=== PATIENT | male | born 1970 | race Caucasian/White ===

== ENCOUNTER 2019-10-02 18:29 | Emergency (ER) | payer BC, SELFPAY ==
[2019-10-02] VITALS (42 sets, daily range): BP systolic 146–203; BP diastolic 79–123; PULSE 82–107; RESP 16–24; O2SAT 90–100
--- NOTE | 2019-10-02 18:36 | ED.GENADUL_ITS ---
Discharge Plan Disposition Patient Disposition: [facility] Condition: Serious Discharge Details Chief Complaint: CVA/TIA Clinical Impression: Intraparenchymal hemorrhage of brain Primary Care Provider: Santiago Blackman ED Provider: Janelle Tamayo Home Meds and New Rx's Prescriptions: No Action acetaminophen 500 mg Tablet 500 mg PO Q6H PRNRF: 0 ibuprofen 600 mg Tablet 600 mg PO Q6H PRNRF: 0 Discharge Data Discharge Date/Time-TO BE ENTERED AT DEPARTURE: 10/02/19 21:40 Medical Decision Making Patient is a pleasant 48-year-old male with past medical history significant for hypertension presenting today with chief complaint of sudden onset of headache and confusion. Patient's is giving history. She reports that approximate 30 minutes prior to arrival, the patient had a sudden onset of severe headache behind the right eye. States that he was suddenly having difficulty with word finding and was unable to describe what he had for things. For instance, she reports that the patient had been eating a sandwich and reported that admitted on the bed when in fact had placed on the table. He was unable to recall his birthday and was unaware of where he was when he first arrived. Patient has had headaches like this historically but without any associated confusion. Patient is not anticoagulated. No history of aneurysm repair where Reviewed imaging and patient has an intraparenchymal bleed that appears to be the temporal and occipital lobes on the left side. No midline shift is noted. Patient's blood pressure is 192/123. We will begin IV nicardipine. Consulted with Dr. Koch with [facility] neurosurgery. She advised that the nicardipine was appropriate and recommended goal systolic blood pressure of less than 140. Also advised giving 1 g of Keppra IV. Awaiting to hear back on bed placement Patient is now oriented x3 but is still having difficulty determining his year. He is able to tell me the day and month at this time. He is able to identify objects that are held in front of him. Patient accepted at [facility] ED [place] ED transfer. Accepting Dr. Randall. Will see if [facility] is flying. [facility] was initially flying, now having mechanical issue. [facility] ground coming. Patient continues to appear clinically well. Difficulty controlling BP. He is maxed at 15mg/hr of nicardipine with BP of 165/112. Plan to give 10mg IV Labetalol. Discussed case with Dr. Blanchard. Just prior to dosing, SBP 148, will hold off on labetalol. BP came back up again,j 10mg of labetalol given IV push. Patient appears improved from when he first came in. He is denying AMIN. Still having difficulty with word finding but this is less pronounced than when he first came in. [facility] ground crew transported patient to [facility] for continued care HPI General Mode of arrival: ambulatory . Date/Time Provider Initiated Documentation: 10/02/19 18:35 . Limitations to Documentation: altered mental status (patient confused) . Information obtained by: patient . History of Present Illness 49 year old M presents to the emergency department with the chief complaint of headache, con fusion, described as severe and similar to prior episodes (has had similar headaches previously), Quality is described as stabbing, and is localized to the face (behind right eye). Patient reports no radiation. Patient started experiencing this minute(s) (30) and it has been constant. Patient notes confusion and headaches; denies fever/chills, nausea/vomiting and weakness. Patient did receive the following treatments prior to arrival, none Related Data Home Medications Medication Instructions Recorded Confirmed acetaminophen 500 mg PO Q6H PRN 10/02/19 10/02/19 ibuprofen 600 mg PO Q6H PRN 10/02/19 10/02/19 Allergies Allergy/AdvReac Type Severity Reaction Status Date / Time No Known Allergies Allergy Unverified 12/17/17 19:34 Review of Systems Constitutional Constitutional: Reports as per HPI, Denies chills, Denies fatigue, Denies fever(s), Denies frequent falls, Reports headache(s), Denies snoring and Denies weakness Eyes Eyes: Reports as per HPI, Denies blurry vision, Denies change in vision and Reports photophobia ENT Ears, Nose, Mouth, and Throat: Denies vertigo, Reports headache(s) and Denies neck pain Cardiovascular Cardiovascular: Reports as per HPI, Denies chest pain, Denies lightheadedness, Denies radiating jaw, neck or arm pain, Denies dyspnea and Denies dyspnea on exertion Respiratory Respiratory: Reports as per HPI, Denies chest congestion, Denies cough, Denies dyspnea, Denies dyspnea on exertion, Denies snoring, Denies stridor and Denies wheezing Gastrointestinal Gastrointestinal: Reports as per HPI, Denies abdominal pain, Denies change in bowel habits, Denies nausea and Denies vomiting Genitourinary Genitourinary: Reports system reviewed and no additional complaints, except as docu (denies change in urinary habits) Musculoskeletal Musculoskeletal: Reports as per HPI, Denies back pain, Denies myalgias, Denies muscle cramps, Denies neck pain and Denies numbness Integumentary/Breasts Skin/Breast: Reports as per HPI and Denies rash Neurologic Neurologic: Reports as per HPI, Denies abnormal movements, Reports abnormal speech, Reports behavioral changes, Reports confusion, Denies vertigo, Denies frequent falls, Reports headache(s), Denies focal weakness, Denies numbness, Denies sensory deficit and Denies weakness Psychiatric Psychiatric: Reports behavioral changes and Reports confusion Endocrine Endocrine: Denies fatigue Allergic/Immunologic Allergic/Immunologic: Denies wheezing [facility] Social History Smoking/Tobacco Use Status: Current every day Tobacco Type: smokeless tobacco Alcohol Intake: never Drug use: Never Substance use type: does not use Do you feel safe in your relationship?: Yes Exam Const General: cooperative, healthy appearing, comfortable, no acute distress, well developed and well groomed Nutritional Appearance: well nourished and overweight Orientation: alert, awake and oriented x3 HENMT Head: normal to inspection, no palpable skull fracture, normocephalic and atraumatic Ears: hearing grossly normal bilaterally, external ears normal and TM's normal bilaterally General nose exam: external nose normal Mouth: oral mucosae normal and moist mucous membranes Throat: posterior oropharynx normal Eyes General: appearance normal, both eyes and all related structures Alignment and Position: alignment normal Periorbital: periorbital findings normal Eyelids: eyelids normal Sclera: sclerae normal Cornea: corneas normal Pupils: PERRL EOM: EOM intact bilaterally Neck Neck: normal visual inspection, full ROM, no lymphadenopathy and no meningeal signs Resp Effort & Inspection: normal respiratory effort, able to speak in complete sentences and no respiratory distress Auscultation: clear to auscultation bilaterally, no rales, no rhonchi and no wheezes Cardio Rate: regular rate Rhythm: regular rhythm Heart Sounds: S1 normal and S2 normal GI Inspection: normal to inspection and non-distended Palpation: soft, no hepatosplenomegaly, not firm, no guarding, not rigid and nontender Percussion: normal to percussion Auscultation: normal bowel sounds Back/Spine/Pelvis Cervical Spine: normal cervical lordosis and cervical ROM normal Skin General skin exam: no rashes or lesions noted Neuro General: alert, awake, not oriented x3 (x 2, does not know the date), gait normal, tone normal, moves all extremities, no meningeal signs and no focal motor deficits Cranial Nerves: CN's II-XI intact bilaterally Cognition: normal cognition Speech: speech abnormal and abnormal speech (difficulty with word finding) Gait: normal gait Motor: muscle tone normal throughout, strength 5/5 throughout, no pronator drift, no movement abnormalities noted and no fasciculations Sensory Exam: no sensory deficits noted Coordination: [id number] test normal and [id number] test normal Extrem General: normal to inspection, normal capillary refill, no pedal edema and no calf tenderness Psych Appearance: grossly normal and well kempt Mental Status: mental status grossly normal Speech and Movement: speech and movement normal
--- NOTE | 2019-10-02 18:42 | DI.CT_ITS ---
EXAM: CT HEAD - STROKE PROTOCOL CLINICAL HISTORY: headache, confusion TECHNIQUE: The exam was performed without contrast. COMPARISON: No exams were available for comparison FINDINGS: Noncontrast cranial CT was performed. Note is made of mucoperiosteal thickening of the maxillary ant ra and to a lesser degree, the sphenoid and ethmoid sinuses consistent with chronic sinusitis. Left mastoid air cells are hypoplastic. Temporal bone structures and orbital structures appear intact. N o calvarial fracture. There is a left hemisphere intraparenchymal hemorrhage involving the temporal and occipital lobes phoebe suring up to 6.7 x 2.9 cm in diameter. There is a probable small quantity of subarachnoid blood note d in left parietal occipital sulcus. No intraventricular blood seen. Mild generalized cerebral atro phy noted. IMPRESSION: Large left temporal occipital intraparenchymal hemorrhage, acute, minimal subarachnoid blood may be p resent in the sulcus in the left parieto-occipital region as well.
--- NOTE | 2019-10-02 18:57 | DI.VRAD_ITS ---
Addendum created by Derek Hernández MD on 10/02/2019 6:58:26 PM EST THIS REPORT CONTAINS FINDINGS THAT MAY BE CRITICAL TO PATIENT CARE. The findings were verbally communicated via telephone conference with Dr. Barroso at 6:57 PM EST on 10/02/2019. The findings were acknowledged and understood. Initial report created on 10/02/2019 6:56:29 PM EST PROCEDURE INFORMATION: Exam: CT Head Without Contrast Exam date and time: 10/02/2019 6:36 PM Age: 48 years old Clinical indication: Pain; headache, confusion TECHNIQUE: Imaging protocol: Computed tomography of the head without contrast. Radiation optimization: All CT scans at this facility use at least one of these dose optimization techniques: automated exposure control; mA and/or kV adjustment per patient size (includes targeted exams where dose is matched to clinical indication); or iterative reconstruction. Other technique: STROKE PROTOCOL was implemented. COMPARISON: No relevant prior studies available. FINDINGS: Brain: Left temporal-occipital lobe acute intraparenchymal hemorrhage measuring 2.0 x 6.7 x 2.9 cm (19.43 cm3) with small amount of adjacent low-density edema. Small amount of subarachnoid blood within a left parietal cortical sulcal marking on images 33-34, series 2. A few scattered small areas of decreased density in the periventricular white matter which are likely secondary to chronic ischemia from microvascular change. Mild diffuse cerebral atrophy. Ventricles: Ventricular prominence in this patient with mild diffuse cerebral atrophy. Bones/joints: Unremarkable. No acute fracture. Sinuses: Bilateral maxillary sinusitis. Minimal partial ethmoid sinusitis. Right sphenoid sinus minimal mucoperiosteal thickening. Mastoid air cells: Left mastoiditis. Soft tissues: Unremarkable. IMPRESSION: 1. Left temporal-occipital lobe acute intraparenchymal hemorrhage measuring 2.0 x 6.7 x 2.9 cm (19.43 cm3) with small amount of adjacent low-density edema. 2. Small amount of subarachnoid blood within a left parietal cortical sulcal marking on images 33-34, series 2. ASSESSMENT: ASPECTS ([place] Stroke Program Early CT Score) is 10. Dictated and Authenticated by: Derek Hernández MD. Ordering:ROMAN Luis MD
[2019-10-02 19:06] LABS: Abs Immature Grans 0.02 k/cumm (0.0-0.09); Absolute Basophil Count 0.03 k/cumm (0.0-0.2); Absolute Lymphocyte Count 4.07 k/cumm (1.2-3.4); Absolute Monocyte Count 1.27 k/cumm (0.11-0.7); Absolute Neutrophil Count 7.05 k/cumm (1.2-6.7); Basophils % 0.2; HCT 44.4 % (40.0-50.0); HGB 15.4 g/dL (13.5-17.5); Immature Grans % 0.2 %; Lymphocytes % 32.4; Mean Corp. HGB Concentration 34.7 g/dL (32.0-36.0); Mean Corpuscular Hemoglobin 31.6 pg (27.0-33.0); Mean Platelet Volume 10.8 fL (8.0-11.0); Monocytes % 10.1; Neutrophils % 56.1; Platelet Count 309 x1000/uL (130-400); RBC 4.88 m/cumm (4.50-6.00); RBC Distribution Width 12.6 % (11.8-14.1); White Blood Cell Count 12.56 k/cumm (4.4-10.8)
[2019-10-02 19:07] LABS: Absolute Eosinophil Count 0.13 k/cumm (0.0-0.7)
[2019-10-02] MEDS: levETIRAcetam 1,000 MG in Normal Saline 100 ML 400 MG IVPB (19:10)
[2019-10-02 19:14] LABS: ALT 33 U/L (16-63); AST 26 U/L (15-37); Albumin 3.9 g/dL (3.4-5.0); Alkaline Phosphatase 84 U/L (46-116); Anion Gap 12.2 mmol/L (3-11); BUN 10 mg/dL (7-18); Bilirubin, Total 0.6 mg/dL (0.2-1.0); CO2 27.8 mmol/L (21.0-32.0); CREATININE 1.06 mg/dL (0.70-1.30); Calcium 8.4 mg/dL (8.5-10.1); Chloride 102 mmol/L (98-107); Glucose 119 mg/dL (74-106); Magnesium 1.9 mg/dL (1.8-2.4); Potassium 3.1 mmol/L (3.5-5.1); Sodium 142 mmol/L (136-145); Total Protein 7.8 g/dL (6.4-8.2)
[2019-10-02 19:15] LABS: Troponin I < 0.05 ng/Ml (<0.06)
[2019-10-02] MEDS: niCARdipine 25 MG in Normal Saline 240 ML 50 MG IV (19:26)
[2019-10-02 20:01] LABS: INR 1.1 (0.9-1.1); PTT Activated 23.9 sec (21.0-31.4); Prothrombin Time 10.9 sec (9.3-11.0)
--- NOTE | 2019-10-02 21:05 | NUR.NOTE ---
Nursing Note: Labetalol not given per Janelle. Pt's blood pressure 144/88
[2019-10-02] MEDS: Labetalol 100 MG/20 ML VIAL 10 MG IVP (21:27)
[2019-10-02 21:31] LABS: Bilirubin Negative (Negative); Blood Small (Negative); Clarity Clear (Clear); Glucose Negative (Negative); Ketones Negative (Negative); Leukocyte Esterase Negative (Negative); Nitrite Negative (Negative); Specific Gravity 1.015 (1.005-1.025); Urobilinogen 0.2 EU/dL (Up TO 0.2)
[2019-10-02 22:02] LABS: C & S Indicated? No/Sq. Contamination; Epithelial Cells Moderate HPF (Negative)
== END 2019-10-02 21:40 | disposition short-term general hospital (02) ==
PROVIDERS: Emergency Provider Physician Assistant; PCP Specialist/Technologist Athletic Trainer
DX: I61.8 Other nontraumatic intracerebral hemorrhage (principal); R51 Headache; I10 Essential (primary) hypertension; F17.210 Nicotine dependence, cigarettes, uncomplicated
CPT/HCPCS: 36415; 80053; 93005; 96365; 96375; 99285; 70450; 81003; 81015; 83735; 84484; 85025; 85610; 85730; 93010; J1953; J3490

== ENCOUNTER 2020-01-15 08:44 | Outpatient (CLI) | payer BC, SELFPAY ==
[2020-01-16 17:07] LABS: COVID-19 RT-PCR Result NEGATIVE (Negative)
== END 2020-01-15 09:04 ==
PROVIDERS: PCP Specialist/Technologist Athletic Trainer; Visit Provider Nurse Practitioner Family
DX: Z11.59 Encounter for screening for other viral diseases (principal)
CPT/HCPCS: U0003

== ENCOUNTER 2020-07-26 16:25 | Emergency (ER) | payer BC, SELFPAY ==
[2020-07-26] VITALS (14 sets, daily range): BP systolic 98–116; BP diastolic 68–91; PULSE 85–95; RESP 12–19; TEMP 36.7; O2SAT 91–100
--- NOTE | 2020-07-26 16:15 | RT.EKG_ITS ---
APPROVED REPORT Exam: Resting ECG Patient Location: E HR:93 bpm ECG Measurements Heart Rate 93 AXIS MA 150 P 18 QRSd 104 QRS -27 QT 337 T 43 QTc 420 Conclusion Sinus rhythm...normal P axis, V-rate 60- 99
--- NOTE | 2020-07-26 16:43 | ED.GENADUL_ITS ---
Discharge Plan Disposition Patient Disposition: HOME Condition: Good Discharge Details Clinical Impression: Chest pain Primary Care Provider: Michelle Lozada ED Provider: Bishnu Blanchard Meds and New Rx's Prescriptions: Continued lisinopril 30 mg tablet 30 mg PO DAILY RF: 0 hydrochlorothiazide 25 mg tablet 25 mg PO DAILY RF: 0 Discharge Instructions Instructions: Chest Pain (ED) Additional Instructions: Your work-up tonight is reassuring, however, to complete the work-up you will need follow-up with primary care and outpatient stress testing. Ideally this should be done within 72 hours, at least contact primary care in the morning for follow-up. Return to ED for any new or recurrent symptoms or concerns. Referrals: Michelle Lozada [Primary Care Provider] - Discharge Data Discharge Date/Time-TO BE ENTERED AT DEPARTURE: 07/26/20 20:50 Medical Decision Making <Mauricio Knott MD - Last Filed: 07/26/20 19:36> 49-year-old male presents from home with complaints of the abrupt onset of s ubsternal chest pressure lasting 30 minutes while he was sitting in his car. It is nonradiating, no associated symptoms, improved on its own. He arrives to the ED with blood pressure 116/74. He is well-appearing and in no distress, no further discomfort. Differential diagnosis includes ACS, esophageal spasm, muscular spasm, pneumothorax. Patient IV access established, referred for laboratory testing, chest x-ray, EKG. Labs note a white count of 12 hematocrit 46, platelets 284. Sodium 141, potassium 3.5, chloride 104, bicarb 30, BUN 28, creatinine 1.3. AST 21, ALT 28. Troponin negative. Chest x-ray without acute findings. Patient served on [employer] and without further recurrence of discomfort. We discussed that his major finding was that of dehydration. He seems to be improving with IV fluids and was able to eat an evening meal. We will sign out to Dr. Blanchard pending repeat troponin. Please see his note regarding final impression and disposition. Lab Data Lab results reviewed: Yes I reviewed the patient's lab results. Labs: Laboratory Results - last 24 hr 07/26/20 07/26/20 16:30 16:30 WBC 12.43 H RBC 4.86 Hgb 15.5 Hct 46.1 MCV 94.9 MCH 31.9 MCHC 33.6 RDW 12.1 Plt Count 284 MPV 11.4 H Immature Gran % 0.2 Neutrophils % 53.5 Lymphocytes % 35.6 Monocytes % 8.6 Eosinophils % 1.6 Basophils % 0.5 Nucleated RBC % 0 Absolute Neutrophils 6.65 Absolute Lymphocytes 4.43 H Absolute Monocytes 1.07 H Absolute Eosinophils 0.20 Absolute Basophils 0.06 Sodium 141 Potassium 3.5 Chloride 104 Carbon Dioxide 30.0 Anion Gap 7.0 BUN 28 H Creatinine 1.37 H Estimated GFR/1.73 m2 55.70 Glucose 111 H Calcium 9.1 Magnesium 2.1 Total Bilirubin 0.7 AST 21 ALT 28 Alkaline Phosphatase 64 Troponin I < 0.05 Total Protein 8.2 Albumin 4.3 <Bishnu Blanchard MD - Last Filed: 07/26/20 21:37> Patient signed out to me pending repeat EKG and troponin. He had presented with central chest pain that lasted approximately [address] Knott's initial note. Patient now pain-free and feels fine. He is low probability of PE by Well's score and subsequently PERCs out. His HEART score is low risk and subsequently, repeat EKG and troponin remain normal. Other labs and CXR were good. Discussed with patient. He is comfortable with discharge and understands he needs follow up with PCP and outpatient stress testing. A stress test in 2018 was normal. He should return to ED for new or recurrent symptoms/concerns. Lab Data Lab results reviewed: Yes I reviewed the patient's lab results. ECG Data Attestation: I personally reviewed and interpreted this ECG (s) as follows: Interpretation: see EKG HPI <Mauricio Knott MD - Last Filed: 07/26/20 19:36> General Mode of arrival: ambulatory . Date/Time Provider Initiated Documentation: 07/26/20 16:25 . Limitations to Documentation: no limitations . Information obtained by: patient . History of Present Illness 49 year old M presents to the emergency department with the chief complaint of Chest pain x30 minutes, now resolved, described as mild, Quality is described as dull, and is localized to the chest. Patient reports no radiation. Patient started experiencing this minute(s) and it has been now resolved. No relieving fac tors improve symptom(s), No exacerbating factors reported . Patient notes no other symptoms.; denies cough, fever/chills, loss of appetite, nausea/vomiting, shortness of breath and weakness. Patient did receive the following treatments prior to arrival, none Related Data Home Medications Medication Instructions Recorded Confirmed hydrochlorothiazide 25 mg PO DAILY 07/26/20 07/26/20 lisinopril 30 mg PO DAILY 07/26/20 07/26/20 Allergies Allergy/AdvReac Type Severity Reaction Status Date / Time No Known Allergies Allergy Unverified 07/26/20 16:32 General Stated Complaint: Chest Pain LIVAN: 2 Review of Systems <Mauricio Knott MD - Last Filed: 07/26/20 19:36> Narrative: 6 systems reviewed and otherwise negative PFSH <Mauricio Knott MD - Last Filed: 07/26/20 19:36> Social History Smoking/Tobacco Use Status: Current every day Tobacco Type: smokeless tobacco Smoking risk assessment performed?: Yes Alcohol Intake: never Drug use: Never Substance use type: does not use Do you feel safe at home: Yes Do you feel safe in your relationship?: Yes Exam <Mauricio Knott MD - Last Filed: 07/26/20 19:36> Narrative Exam Narrative: GEN: awake, alert, oriented 3. Pleasant, well groomed, interactive. HEAD: Normocephalic, atraumatic ENT: Mucous membranes moist, External ear exam unremarkable EYES: PERRL, EOMI NECK: Full ROM, no JANKI, no menigismus CHEST/RESP: Nontender, clear to auscultation bilateral, no wheeze/rhonchi/rales CARDIOVASCULAR: RRR, no murmur, rub agustina. 2+ Rad pulse bilateral ABDOMEN: Soft, nontender, no mass. +Bowel sounds EXT: Full ROM, no edema, no rash Neuro: Grossly normal neurologic exam, conversant, interactive. Psych: Speech fluent, thoughts congruent, affect normal Course <Mauricio Knott MD - Last Filed: 07/26/20 19:36> Vital Signs Vital signs: Vital Signs Temperature 36.7 C 07/26/20 16:27 Pulse 93 H 07/26/20 16:27 Respiratory Rate 16 07/26/20 16:27 Blood Pressure 116/74 07/26/20 16:27 Pulse Oximetry 100 07/26/20 16:27 Temperature 36.7 C 07/26/20 16:27 Temperature Source Skin 07/26/20 16:27 Pulse 93 H 07/26/20 16:27 Respiratory Rate 16 07/26/20 16:27 Respiratory Effort 07/26/20 16:31 Blood Pressure 116/74 07/26/20 16:27 Blood Pressure Position Supine 07/26/20 16:27 Pulse Oximetry 100 07/26/20 16:27 Oxygen Delivery Method Room Air 07/26/20 16:27 Oxygen Flow Rate 0 07/26/20 16:27 Pain Level 3 07/26/20 16:27 Comment 07/26/20 16:27 Sign Out <Mauricio Knott MD - Last Filed: 07/26/20 19:36> Sign Out Data: Sign Out Comment: Followup repeat trop Last updated by Mauricio Knott MD at 07/26/20 19:41
[2020-07-26 17:13] LABS: Abs Immature Grans 0.03 10^3/uL (0.0-0.06); Absolute Basophil Count 0.06 10^3/uL (0.0-0.2); Absolute Lymphocyte Count 4.43 10^3/uL (1.2-3.4); Absolute Monocyte Count 1.07 10^3/uL (0.1-0.8); Absolute Neutrophil Count 6.65 10^3/uL (1.2-6.7); Basophils % 0.5; Eosinophils % 1.6; HCT 46.1 % (40.0-50.0); HGB 15.5 g/dL (13.5-17.5); Immature Grans % 0.2; Lymphocytes % 35.6; MCH 31.9 pg (27.0-33.0); MCHC 33.6 % (32.0-36.0); MCV 94.9 fL (80-95); MPV 11.4 fL (8.0-11.0); Monocytes % 8.6; Neutrophils % 53.5; Nucleated RBC 0 %; Platelet Count 284 10^3/uL (130-400); RBC 4.86 10^6/uL (4.36-5.78); RDW 12.1 % (11.8-14.1); RDW-SD 42.5 fL; WBC 12.43 10^3/uL (4.4-10.8)
--- NOTE | 2020-07-26 17:15 | DI.RAD_ITS ---
EXAM: XR CHEST 2V PA LATERAL CLINICAL HISTORY: CHest pain, now resolved. TECHNIQUE: 2D digital imaging was performed. COMPARISON: No exams were available for comparison FINDINGS: Heart size normal. Mediastinum is not widened. Lungs are clear. No pleural effusions. No pneumoth orax. IMPRESSION: No acute pulmonary findings. DATA REPOSITORY: RADIATION DOSE DELIVERED:
--- NOTE | 2020-07-26 17:18 | DI.VRAD_ITS ---
PROCEDURE INFORMATION: Exam: XR Chest, 2 Views Exam date and time: 07/26/2020 4:43 PM Age: 49 years old Clinical indication: Chest pain TECHNIQUE: Imaging protocol: XR of the chest Views: 2 views. COMPARISON: No relevant prior studies available. FINDINGS: Lungs: Unremarkable. No consolidation. Pleural space: Unremarkable. No pleural effusion. No pneumothorax. Heart/Mediastinum: Unremarkable. No cardiomegaly. Bones/joints: Unremarkable. IMPRESSION: No acute findings. Dictated and Authenticated by: Corey Krishna MD. Ordering:ROSELINE Martínez MD
[2020-07-26 17:29] LABS: ALT 28 U/L (16-63); AST 21 U/L (15-37); Albumin 4.3 g/dL (3.4-5.0); Alkaline Phosphatase 64 U/L (46-116); BUN 28 mg/dL (7-18); Bilirubin, Total 0.7 mg/dL (0.2-1.0); CREATININE 1.37 mg/dL (0.70-1.30); Calcium 9.1 mg/dL (8.5-10.1); Chloride 104 mmol/L (98-107); Glucose 111 mg/dL (74-106); Magnesium 2.1 mg/dL (1.8-2.4); Potassium 3.5 mmol/L (3.5-5.1); Sodium 141 mmol/L (136-145); Total Protein 8.2 g/dL (6.4-8.2); Troponin I < 0.05 ng/mL (<0.06)
[2020-07-26] MEDS: Normal Saline 1,000 ML 125 ML IV (17:33)
[2020-07-26 20:07] LABS: Troponin I < 0.05 ng/mL (<0.06)
--- NOTE | 2020-07-26 20:15 | RT.EKG_ITS ---
APPROVED REPORT Exam: Resting ECG Patient Location: E HR:87 bpm ECG Measurements Heart Rate 87 AXIS AK 155 P 23 QRSd 99 QRS -20 QT 353 T 16 QTc 426 Conclusion Sinus rhythm...normal P axis, V-rate 60- 99 There are no significant changes compared to prior EKG performed on 07/26/2020 at 16:29.
== END 2020-07-26 20:50 | disposition home or self-care (01) ==
PROVIDERS: Emergency Medicine; Emergency Provider Emergency Medicine; PCP Nurse Practitioner Family
DX: R07.89 Other chest pain (principal); F17.210 Nicotine dependence, cigarettes, uncomplicated
CPT/HCPCS: 36415; 80053; 93005; 96360; 96361; 99285; 71046; 83735; 84484; 85025; 93010; 99284

== ENCOUNTER 2020-08-22 09:32 | Emergency (ER) | payer BC, SELFPAY ==
[2020-08-22] VITALS (163 sets, daily range): BP systolic 99–158; BP diastolic 50–91; PULSE 68–113; RESP 0–34; TEMP 36.4–37.2; O2SAT 80–98
--- NOTE | 2020-08-22 09:15 | DI.CT_ITS ---
EXAM: CT HEAD - STROKE PROTOCOL CLINICAL HISTORY: word finding. TECHNIQUE: Imaging Protocol: Axial computed tomography images with coronal and sagittal reformatted images were created and reviewed COMPARISON: No exams were available for comparison FINDINGS: Ventricles and Extra axial spaces: Normal in size and morphology for the patient's age. Hemorrhage: None. Cerebral parenchyma: Atrophy. White matter changes consistent with small vessel disease. There is a n area of encephalomalacia in the left occipital temporal region in the area of prior hemorrhage. Midline shift: None. Brainstem/Cerebellum: Normal. Calvarium: Normal. Visualized Paranasal sinuses/Mastoids: Mild ethmoid and left maxillary sinus mucosal thickening. IMPRESSION: No acute abnormality. RADIATION DOSE DELIVERED: 890.96mGy.cm Total DLP 890.96mGy.cm Total DLP DATA REPOSITORY: All CT scans at this facility are submitted to the National Radiology Data Registry (NRDR) Dose Index Registry (DIR) with the [employer] (A[employer]). RADIATION OPTIMIZATION: All CT scans at this facility use at least one of these dose optimization te chniques: automated exposure control; mA and/or kV adjustment per patient size (includes targeted exa ms where dose is matched to clinical indication); or iterative reconstruction.
--- NOTE | 2020-08-22 09:15 | RT.EKG_ITS ---
APPROVED REPORT Exam: Resting ECG Patient Location: E HR:80 bpm ECG Measurements Heart Rate 80 AXIS [place] 74 P 58 QRSd 102 QRS -24 QT 353 T 50 QTc 408 Conclusion Sinus rhythm...normal P axis, V-rate 60- 99
--- NOTE | 2020-08-22 09:24 | ED.GENADUL_ITS ---
Discharge Plan Disposition Patient Disposition: [facility] Condition: Improving Discharge Details Clinical Impression: Expressive aphasia Primary Care Provider: Michelle Lozada ED Provider: Mauricio Knott Home Meds and New Rx's Prescriptions: No Action lisinopril 30 mg tablet 30 mg PO DAILY RF: 0 hydrochlorothiazide 25 mg tablet 25 mg PO DAILY RF: 0 Medical Decision Making 49-year-old male presents via EMS. His called the ambulance after the patient awoke and was moving around the house normally, but was then noted to have an expressive aphasia and difficulty with conversation. Reported to have a normal day and routine yesterday. Last seen normal at 2130 last night prior to normal night sleep. 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 He arrives to the ER interactive, able to follow commands, but with an expressive aphasia. Blood pressure 143/90 with a pulse of 86.\ After initial triage, patient noted to be slightly hypoxic, also noted to become aphasic with head turning to right for approximately 5 minutes without tonic- clonic movements but question increased muscular tone and note of pill rolling movement of Right hand. This persisted for approximately 5 minutes. Differential diagnosis includes recurrent intracranial hemorrhage, mass, ischemic stroke, seizure. His will note history of sleep apnea and noncompliance with using CPAP. Stat noncontrast CT scan of the head reveals no acute intracranial findings. Sequela of prior left temporal occipital hemorrhagic stroke noted with some encephalomalacia. ABG obtained which shows a pH of 7.2, PCO2 68, PO2 of 70. Patient given 0.5 mg of Ativan and Keppra given consideration for partial complex seizure. Patient had improvement and again had multiword sentences that remained word salad. After approximately 30 minutes of BiPAP, patient was returned to nasal cannula with his speech improved. Repeat ABG showed a pH of 7.35, PCO2 47, PO2 of 88. CT scan of his chest showed some suboptimal enhancement but no large caliber pulmonary artery filling defects or consolidations seen. Case discussed with neurology at [facility], Dr. Hughes and patient accepted in transfer for further evaluation. We agreed prior to transfer to proceed with CT angiogram of head and neck. This reveals no major vessel cutoff or aneurysm, no significant stenosis. Following return from CAT scan I was called to the room that the patient become extremely agitated and combative. He was speaking more fluently but claiming that the year was 1976 and was unable to demonstrate clear or linear thoughts. His was called to the room and agreed that he was not mentating normally. The patient attempted to leave and was a danger to himself, trying to pull out his IV. He was given Ativan, Haldol, Benadryl for agitation and was able to calm. His stated that a similar agitated delirium occurred when he was admitted to [facility] following intraparenchymal hemorrhage in September 2019. Unclear at this time with the patient's presentation represents small ischemic stroke, seizure, delirium, or other acute process. Lab Data Lab results reviewed: Yes I reviewed the patient's lab results. Labs: Laboratory Results - last 24 hr 08/22/20 08/22/20 08/22/20 09:30 09:30 09:30 WBC 9.54 RBC 4.40 Hgb 14.2 Hct 41.3 MCV 93.9 MCH 32.3 MCHC 34.4 RDW 11.9 Plt Count 245 MPV 10.8 Immature Gran % 0.1 Neutrophils % 47.9 Lymphocytes % 41.4 Monocytes % 7.4 Eosinophils % 2.7 Basophils % 0.5 Nucleated RBC % 0 Absolute Neutrophils 4.56 Absolute Lymphocytes 3.95 H Absolute Monocytes 0.71 Absolute Eosinophils 0.26 Absolute Basophils 0.05 PT 10.8 INR 1.1 ABG Sample Site ABG pH ABG pCO2 ABG pO2 ABG HCO3 ABG Total CO2 ABG O2 Saturation ABG Base Excess FiO2 Sodium 141 Potassium 4.1 Chloride 106 Carbon Dioxide 29.0 Anion Gap 6.0 BUN 23 H Creatinine 1.28 Estimated GFR/1.73 m2 >= 60.00 Glucose 111 H Calcium 8.5 Magnesium 1.9 Total Bilirubin 0.7 AST 19 ALT 27 Alkaline Phosphatase 63 Troponin I < 0.05 Total Protein 7.3 Albumin 3.6 Urine Color Urine Clarity Urine pH Ur Specific [place] Urine Protein Urine Ketones Urine Blood Urine Nitrite Urine Bilirubin Urine Urobilinogen Ur Leukocyte Esterase Urine RBC Urine WBC Ur Epithelial Cells Urine Crystals Urine Bacteria Urine Casts Urine Mucus Urine Other Ur Culture Indicated? Urine Glucose 08/22/20 08/22/20 08/22/20 10:35 11:55 12:30 WBC RBC Hgb Hct MCV MCH MCHC RDW Plt Count MPV Immature Gran % Neutrophils % Lymphocytes % Monocytes % Eosinophils % Basophils % Nucleated RBC % Absolute Neutrophils Absolute Lymphocytes Absolute Monocytes Absolute Eosinophils Absolute Basophils PT INR ABG Sample Site Right radial ABG pH 7.24 L ABG pCO2 69 H* ABG pO2 70 L ABG HCO3 29 H ABG Total CO2 27 ABG O2 Saturation 92 L ABG Base Excess 2 FiO2 21 Sodium Potassium Chloride Carbon Dioxide Anion Gap BUN Creatinine Estimated GFR/1.73 m2 Glucose Calcium Magnesium Total Bilirubin AST ALT Alkaline Phosphatase Troponin I < 0.05 Total Protein Albumin Urine Color Yellow Urine Clarity Clear Urine pH 6.0 Ur Specific [place] 1.025 Urine Protein Negative Urine Ketones Negative Urine Blood Small H Urine Nitrite Negative Urine Bilirubin Negative Urine Urobilinogen 0.2 Ur Leukocyte Esterase Negative Urine RBC 3-5 H Urine WBC 0-2 Ur Epithelial Cells Few Urine Crystals Negative Urine Bacteria Rare Urine Casts Negative Urine Mucus Negative Urine Other Rare renal Ur Culture Indicated? No Urine Glucose Negative 08/22/20 12:30 WBC RBC Hgb Hct MCV MCH MCHC RDW Plt Count MPV Immature Gran % Neutrophils % Lymphocytes % Monocytes % Eosinophils % Basophils % Nucleated RBC % Absolute Neutrophils Absolute Lymphocytes Absolute Monocytes Absolute Eosinophils Absolute Basophils PT INR ABG Sample Site Left radial ABG pH 7.35 ABG pCO2 48 H ABG pO2 89 ABG HCO3 26 ABG Total CO2 24 ABG O2 Saturation 97 ABG Base Excess 1 FiO2 21 Sodium Potassium Chloride Carbon Dioxide Anion Gap BUN Creatinine Estimated GFR/1.73 m2 Glucose Calcium Magnesium Total Bilirubin AST ALT Alkaline Phosphatase Troponin I Total Protein Albumin Urine Color Urine Clarity Urine pH Ur Specific [place] Urine Protein Urine Ketones Urine Blood Urine Nitrite Urine Bilirubin Urine Urobilinogen Ur Leukocyte Esterase Urine RBC Urine WBC Ur Epithelial Cells Urine Crystals Urine Bacteria Urine Casts Urine Mucus Urine Other Ur Culture Indicated? Urine Glucose HPI General Mode of arrival: EMS . Date/Time Provider Initiated Documentation: 08/22/20 09:33 . Information obtained by: EMS . History of Present Illness 49 year old M presents to the emergency department with the chief complaint of Word finding difficulty, noticed this morning, described as moderate, Quality is described as constant, and is localized to the head. Patient started experiencing this unknown (Last normal at 930 yesterday evening) and it has be en constant. No relieving factors improve symptom(s), No exacerbating factors reported . Patient notes denies chest pain, syncope and weakness. Patient did receive the following treatments prior to arrival, none Related Data Home Medications Medication Instructions Recorded Confirmed hydrochlorothiazide 25 mg PO DAILY 07/26/20 08/22/20 lisinopril 30 mg PO DAILY 07/26/20 08/22/20 Allergies Allergy/AdvReac Type Severity Reaction Status Date / Time No Known Allergies Allergy Unverified 08/22/20 09:48 General LIVAN: 2 Review of Systems Narrative: No recent illness reported. Review of systems limited due to patient's expressive aphasia. [facility] Medical History (Updated 08/22/20 @ 15:55 by Mauricio Knott MD) Hemorrhagic stroke Hypertension Prediabetes Tobacco abuse Social History Smoking/Tobacco Use Status: Current every day Tobacco Type: smokeless tobacco Smoking risk assessment performed?: Yes Alcohol Intake: never Drug use: Never Substance use type: does not use Do you feel safe at home: Yes Do you feel safe in your relationship?: Yes Exam Narrative Exam Narrative: GEN: awake, alert.Well groomed, interactive, able to follow commands. HEAD: Normocephalic, atraumatic ENT: Mucous membranes moist, oropharynx unremarkable, External ear exam unremarkable EYES: PERRL, EOMI NECK: Full ROM, no JANKI, no menigismus CHEST/RESP: Nontender, clear to auscultation bilateral, no wheeze/rhonchi/rales CARDIOVASCULAR: RRR, no murmur, rub agustina. 2+ Rad pulse bilateral ABDOMEN: Soft, nontender, no mass. +Bowel sounds EXT: Full ROM, no edema, no rash Neuro: No facial droop, patient able to speak but limited to 2-3 words. Unable to identify objects. Expressive aphasia present. No focal weakness. Psych: Unable to assess
--- NOTE | 2020-08-22 09:30 | DI.RAD_ITS ---
EXAM: XR CHEST 1V IN DI DEPT CLINICAL HISTORY: prev stroke TECHNIQUE: 2D digital imaging was performed. COMPARISON: CR,XR XR CHEST 2V PA LATERAL from 07/26/2020 FINDINGS: Exam is limited due to poor pulmonary inflation. The heart size is within normal limits for degree o f inspiration and projection. The aorta is tortuous, unchanged. The lungs are grossly clear. IMPRESSION: No acute pulmonary findings. DATA REPOSITORY: RADIATION DOSE DELIVERED:
--- OUTSIDE RECORDS SUMMARY | 2020-08-22 09:42 | XMS_ITS ---
:1970 Author Care Team Providers Name Role Phone [facility] MEDICAL RECORDS Primary Care Provider [phone] Allergies Code Code System Name Reaction Severity Status Onset NKDA ? Medications Name Status Start Date Stop Date ? ? losartan Active ? Not available 50mg daily Problems Name Status Onset Date Source ? Excessive Daytime Sleepiness - Normal Night Unknown 12/2017 ? Sleep Snoring Active 03/01/2018 ? Tobacco User Active ? ? Obstructive Sleep Apnea Syndrome Active ? ? Hypertensive Disorder Active ? ? Procedures Date Name Performed by ? 03/01/2018 Polysomnogram [facility] [address] [place] [id number] (Work Place) Results Lab Results None recorded. Past Encounters None recorded. Social History Tobacco Smoking Status Current Every Day Smoker Notes: 1/ 2ppd Vaccine List None recorded. Plan of Care Reminders Provider Appointments None ? ? recorded. Lab None ? ? recorded. Referral None ? ? recorded. Procedures None ? ? recorded. Surgeries None ? ? recorded. Imaging None ? ? recorded. Vitals 05/17/2018 03:00PM Office 30 Height Weight BMI Blood Pressure 179.07 cm 130.23 kg 40.6 kg/m2 180/105 mm[Hg] 03/15/2018 12:30PM Office 30 Height Weight BMI Blood Pressure 179.07 cm 126.42 kg 39.4 kg/m2 150/98 mm[Hg] 03/01/2018 03:15PM New Patient 45 Height Weight BMI Blood Pressure 179.07 cm 127.28 kg 39.7 kg/m2 150/98 mm[Hg]
[2020-08-22 09:45] LABS: Abs Immature Grans 0.01 10^3/uL (0.0-0.06); Absolute Basophil Count 0.05 10^3/uL (0.0-0.2); Absolute Eosinophil Count 0.26 10^3/uL (0.0-0.7); Absolute Lymphocyte Count 3.95 10^3/uL (1.2-3.4); Absolute Monocyte Count 0.71 10^3/uL (0.1-0.8); Absolute Neutrophil Count 4.56 10^3/uL (1.2-6.7); Basophils % 0.5; Eosinophils % 2.7; HCT 41.3 % (40.0-50.0); HGB 14.2 g/dL (13.5-17.5); Immature Grans % 0.1; Lymphocytes % 41.4; MCH 32.3 pg (27.0-33.0); MCHC 34.4 % (32.0-36.0); MCV 93.9 fL (80-95); MPV 10.8 fL (8.0-11.0); Monocytes % 7.4; Neutrophils % 47.9; Nucleated RBC 0 %; Platelet Count 245 10^3/uL (130-400); RDW 11.9 % (11.8-14.1); RDW-SD 41.3 fL; WBC 9.54 10^3/uL (4.4-10.8)
--- NOTE | 2020-08-22 09:53 | DI.VRAD_ITS ---
PROCEDURE INFORMATION: Exam: CT Head Without Contrast Exam date and time: 08/22/2020 9:25 AM Age: 49 years old Clinical indication: Speech disturbance; Aphasia; Patient HX: HX hemorrhagic stroke sep 2019, new onset difficulty with word finding TECHNIQUE: Imaging protocol: Computed tomography of the head without contrast. Other technique: STROKE PROTOCOL was implemented. COMPARISON: CT HEAD - STROKE PROTOCOL 10/02/2019 6:45 PM FINDINGS: Brain: Sequelae of prior left temporal occipital intraparenchymal hemorrhage which was seen on CT of the head dated 10/02/2019 common now with some encephalomalacia. Sequelae of chronic microvascular ischemic disease.There is mild generalized brain parenchymal volume loss. There is no evidence of acute hemorrhage within the brain parenchyma or the subarachnoid space. There is no evidence of uncal or subfalcine herniation. There is no evidence of an acute ischemic event. Cerebral ventricles: There is no significant ventricular effacement or midline shift. Bones/joints: Unremarkable. No acute fracture. Paranasal sinuses: Mild ethmoid sinus and left maxillary mucosal thickening. No fluid levels. Mastoid air cells: Visualized mastoid air cells are well aerated. Soft tissues: Unremarkable. IMPRESSION: 1. No acute intracranial findings. Note that early ischemic change can be occult on CT. 2. Sequelae of prior left temporal occipital intraparenchymal hemorrhagic stroke now with some encephalomalacia. ASSESSMENT: ASPECTS ([place] Stroke Program Early CT Score) is 10. Dictated and Authenticated by: Mateusz Ambriz MD. Ordering:ROSELINE Martínez MD
--- NOTE | 2020-08-22 09:54 | DI.VRAD_ITS ---
PROCEDURE INFORMATION: Exam: XR Chest, 1 View Exam date and time: 08/22/2020 9:44 AM Age: 49 years old Clinical indication: Other: Prev stroke TECHNIQUE: Imaging protocol: XR of the chest Views: 1 view. COMPARISON: CR XR CHEST 2V PA LATERAL 07/26/2020 5:11 PM FINDINGS: Lungs: Low lung volumes. Bronchovascular crowding. No consolidation. Pleural space: Unremarkable. No pleural effusion. No pneumothorax. Heart/Mediastinum: Unremarkable. No cardiomegaly. Bones/joints: Unremarkable. IMPRESSION: 1. Low lung volumes with some bronchovascular crowding. 2. No acute findings. Dictated and Authenticated by: Mateuzs Ambriz MD. Ordering:ROSELINE Martínez MD
[2020-08-22 10:00] LABS: INR 1.1 (0.9-1.1); Prothrombin Time 10.8 sec (9.3-11.0)
[2020-08-22 10:01] LABS: ALT 27 U/L (16-63); AST 19 U/L (15-37); Albumin 3.6 g/dL (3.4-5.0); Alkaline Phosphatase 63 U/L (46-116); BUN 23 mg/dL (7-18); Bilirubin, Total 0.7 mg/dL (0.2-1.0); CREATININE 1.28 mg/dL (0.70-1.30); Calcium 8.5 mg/dL (8.5-10.1); Chloride 106 mmol/L (98-107); Glucose 111 mg/dL (74-106); Magnesium 1.9 mg/dL (1.8-2.4); Potassium 4.1 mmol/L (3.5-5.1); Sodium 141 mmol/L (136-145); Total Protein 7.3 g/dL (6.4-8.2)
[2020-08-22 10:05] LABS: Troponin I < 0.05 ng/mL (<0.06)
--- NOTE | 2020-08-22 10:30 | DI.CT_ITS ---
EXAM: CT CHEST W CLINICAL HISTORY: hypoxia TECHNIQUE: Imaging Protocol: Axial computed tomography images with coronal and sagittal reformatted images were created and reviewed CONTRAST MATERIAL: Intravenous: Omnipaque 350 Contrast volume:70 ml. COMPARISON: No exams were available for comparison FINDINGS: The exam is limited by respiratory motion. Contrast bolus is suboptimal in the pulmonary arteries ar e suboptimally enhanced. Tracheobronchial tree: Patent where visualized. Mediastinum and Meche: No dominant adenopathy or fluid collection. Pulmonary parenchyma: No consolidation or dominant measurable mass. No architectural distortion. Pleura: No effusion or pneumothorax. Heart: The heart is not dilated. Minimal coronary artery calcifications are seen. Aorta: Thoracic aorta non-dilated. No evidence of dissection. Pulmonary arteries show normal caliber . No gross central emboli are seen Upper abdomen: Unremarkable. Lymph nodes: Within normal limits. Bones: Degenerative disc changes in thoracic spine Tubes, Catheters, and Lines: Soft tissues: Unremarkable. IMPRESSION: Exam due to respiratory motion poor contrast bolus timing. No acute abnormality is identified. RADIATION DOSE DELIVERED: 874.4mGy.cm Total DLP DATA REPOSITORY: All CT scans at this facility are submitted to the National Radiology Data Registry (NRDR) Dose Index Registry (DIR) with the [employer] (ACR). RADIATION OPTIMIZATION: All CT scans at this facility use at least one of these dose optimization te chniques: automated exposure control; mA and/or kV adjustment per patient size (includes targeted exa ms where dose is matched to clinical indication); or iterative reconstruction.
[2020-08-22] MEDS: Normal Saline 1,000 ML 1000 ML IV (10:35)
[2020-08-22 10:40] LABS: BE 2 mmol/L (-2-3); HCO3 29 mmol/L (22-26); pH 7.24 (7.35-7.45); pO2 70 mmHg (80-105); sO2 92 % (95-98); tCO2 27 mmol/L (23-27)
[2020-08-22 10:44] LABS: FIO2 21 %; Site Right Radial; pCO2 69 mmHg (35-45)
[2020-08-22] MEDS: LORazepam 2 MG/ML VIAL 0.5 MG IVP (11:00)
[2020-08-22] MEDS: levETIRAcetam 1,000 MG in Normal Saline 100 ML 400 MG IVPB (11:00)
[2020-08-22] MEDS: Normal Saline 1,000 ML 125 ML IV (11:51)
[2020-08-22 11:58] LABS: Bilirubin Negative (Negative); Blood Small (Negative); Clarity Clear (Clear); Glucose Negative (Negative); Ketones Negative (Negative); Leukocyte Esterase Negative (Negative); Nitrite Negative (Negative); Specific Gravity 1.025 (1.005-1.025); Urobilinogen 0.2 EU/dL (Up TO 0.2)
[2020-08-22] MEDS: Normal Saline - Diluent 50 ML VIAL IV ×2 (12:11→13:45)
[2020-08-22] MEDS: Omnipaque 350 MG/ML 100 ML BTL IJ ×2 (12:11→13:44)
[2020-08-22 12:12] LABS: Epithelial Cells Few HPF (Negative); Other Cells Rare Renal (Negative); WBC 0-2 HPF (0-5)
[2020-08-22] MEDS: Normal Saline Flush 10 ML SYR IVP (12:12)
[2020-08-22 12:13] LABS: Bacteria Rare HPF (Negative); C & S Indicated? No; Casts Negative LPF (Negative); Crystals Negative HPF (Negative); Mucus Negative (Negative)
[2020-08-22 12:32] LABS: BE 1 mmol/L (-2-3); HCO3 26 mmol/L (22-26); pCO2 48 mmHg (35-45); pH 7.35 (7.35-7.45); pO2 89 mmHg (80-105); sO2 97 % (95-98); tCO2 24 mmol/L (23-27)
--- NOTE | 2020-08-22 12:32 | DI.VRAD_ITS ---
PROCEDURE INFORMATION: Exam: CT Chest With Contrast; Diagnostic Exam date and time: 08/22/2020 12:13 PM Age: 49 years old Clinical indication: Other: Hypoxia TECHNIQUE: Imaging protocol: Diagnostic computed tomography of the chest with intravenous contrast. Radiation optimization: All CT scans at this facility use at least one of these dose optimization techniques: automated exposure control; mA and/or kV adjustment per patient size (includes targeted exams where dose is matched to clinical indication); or iterative reconstruction. Contrast material: OMNIPAQUE 350; Contrast volume: 70 ml; Contrast route: INTRAVENOUS (IV); COMPARISON: CR XR CHEST 1V IN DI DEPT 08/22/2020 9:41 AM FINDINGS: Lungs: Significant patient respiratory motion blurring artifact limits detailed evaluation of the pulmonary artery and its branches. Given the limitation, there are no large consolidations or a large pulmonary nodule. Pleural space: No pleural effusion or pneumothorax. Heart: Coronary artery calcifications. Pulmonary arteries: In addition, there is suboptimal contrast enhancement of the pulmonary arteries precluding evaluation for pulmonary embolism at the lobar, segmental or subsegmental levels. Given the limitation, there are no large filling defects in the main, main left, or main right pulmonary arteries. Aorta: Unremarkable. No aortic aneurysm. Lymph nodes: Unremarkable. No enlarged lymph nodes. Bones/joints: Unremarkable. No acute fracture. Soft tissues: Unremarkable. IMPRESSION: 1. Suboptimal contrast enhancement and breath hold limits evaluation for pulmonary embolism. Given the limitation, there are no large consolidations, effusions or large caliber pulmonary artery filling defects. 2. Coronary artery calcification. Dictated and Authenticated by: Meka Guerin MD. Ordering:ROSELINE Martínez MD
[2020-08-22 12:35] LABS: FIO2 21 %; Site Left Radial
[2020-08-22 13:27] LABS: Troponin I < 0.05 ng/mL (<0.06)
--- NOTE | 2020-08-22 13:31 | DI.CT_ITS ---
EXAM: CT BRAIN NECK CTA CLINICAL HISTORY: persistent aphasia. TECHNIQUE: Imaging Protocol: Axial CT angiography was performed with multi-slice acquisition and mu lti-planar and/or 3D reconstructions. CONTRAST MATERIAL: Intravenous: Omnipaque 350 Contrast volume:structured data in ml Intravenous: Omnipaque 350 Contrast volume:85cc COMPARISON: No exams were available for comparison FINDINGS: CTA Brain W: Internal Carotid Arteries: Petrous: Normal. Cavernous: Mild calcification Cerebral: Normal. Middle Cerebral Arteries: Right: No aneurysm, occlusion or significant stenosis. Left: No aneurysm, occlusion or significant stenosis. Anterior Cerebral Arteries: Right: No aneurysm, occlusion or significant stenosis. Left: No aneurysm, occlusion or significant stenosis. Posterior cerebral Arteries: Right: No aneurysm, occlusion or significant stenosis. Left: No aneurysm, occlusion or significant stenosis. Vertebral Arteries: Right: No aneurysm, occlusion or significant stenosis. Left: No aneurysm, occlusion or significant stenosis. Basilar Artery: No aneurysm, occlusion or significant stenosis. CTA Neck W: Common Carotid: Right: No aneurysm, occlusion or significant stenosis. Mild calcification at the common carotid bulb . Left: No aneurysm, occlusion or significant stenosis. Mild calcification of the common carotid bulb. External Carotid: Right: No aneurysm, occlusion or significant stenosis. Left: No aneurysm, occlusion or significant stenosis. Internal Carotid: Right: No aneurysm, occlusion or significant stenosis. Left: No aneurysm, occlusion or significant stenosis. Vertebral Artery: Right: No aneurysm, occlusion or significant stenosis. The right vertebral artery is dominant. Left: No aneurysm, occlusion or significant stenosis. Paranasal sinuses: Small mucous retention cysts in the maxillary sinuses. Lung Apices: Normal. Bones: Multiple missing and fractured teeth. Compare apical lucencies. Soft Tissues: Normal. IMPRESSION: 1. Mild calcification in the cavernous portion the internal carotid arteries bilaterally. No evidenc e of dissection, significant stenosis or occlusion. No aneurysm is seen. 2. Mild calcification at common carotid bulbs. No evidence of significant stenosis or dissection. 3. Dental disease. RADIATION DOSE DELIVERED: LINK-TO-SR Total DLP 361.09mGy.cm Total DLP 361.09mGy.cm Total DLP DATA REPOSITORY: All CT scans at this facility are submitted to the National Radiology Data Registry (NRDR) Dose Index Registry (DIR) with the [employer] (ACR). RADIATION OPTIMIZATION: All CT scans at this facility use at least one of these dose optimization te chniques: automated exposure control; mA and/or kV adjustment per patient size (includes targeted exa ms where dose is matched to clinical indication); or iterative reconstruction.
[2020-08-22] MEDS: LORazepam 2 MG/ML VIAL ×2 (14:05→14:10)
[2020-08-22] MEDS: Haloperidol 5 MG/ML VIAL ×2 (14:13→14:20)
--- NOTE | 2020-08-22 14:15 | NUR.NOTE ---
Nursing Note: pt became quickly agitated with being in hospital- contacted and escorted through for deescalation, as pt does not currently have capacity to sign AMA per MD Knott, who is aware and addressing situation. Code Pepito called as pt exits bed and yelling and screaming to leave. Verbal deescalation attempted, emergent medication orders given by Dr. Knott- see MAR for details.
[2020-08-22] MEDS: diphenhydrAMINE 50 MG/ML VIAL (14:20)
--- NOTE | 2020-08-22 14:44 | NUR.NOTE ---
1350 when pt came back from CT--began verbalizing that he wanted to go home. Becomming louder and threatening to pull out his IV. Dr Knott notified. Pt becoming more agitated. brought in from Parking lot and Dr Knott in talking with pt and . Pt escalating in verbal abuse and climbing out of bed with fist clenching with threatening speech. IV medication given (see MAR). 1435 pt quieted down able to position him back on bed and attach monitoring equipment. 1445 pt sleeping , VS stable, sitting with him.Nursing Note:
--- NOTE | 2020-08-22 14:47 | DI.VRAD_ITS ---
PROCEDURE INFORMATION: Exam: CT Angiography Head With Contrast Exam date and time: 08/22/2020 1:47 PM Age: 49 years old Clinical indication: Speech disturbance; Aphasia; Patient HX: HX hemorrhagic stroke in 09/2019 TECHNIQUE: Imaging protocol: Computed tomography angiography of the head with intravenous contrast. 3D rendering (Not supervised by radiologist): MIP and/or 3D reconstructed images were created by the technologist. COMPARISON: CT HEAD - STROKE PROTOCOL 08/22/2020 9:39 AM FINDINGS: Left internal carotid artery: The petrous segment of the left internal carotid artery demonstrates normal enhancement. There is mild calcification of the cavernous and paraophthalmic segment of the left internal carotid artery without measurable stenosis. Left internal carotid artery terminal is normal. Anterior and middle cerebral arteries demonstrate normal enhancement. Right internal carotid artery. The petrous, cavernous and supraclinoid segment of the right internal carotid artery demonstrates normal enhancement. There is mild calcification of the right cavernous segment without measurable stenosis. Right internal carotid artery terminal demonstrates normal enhancement. The anterior middle cerebral arteries have normal enhancement without measurable stenosis. There is no major vessel cutoff or aneurysm. Posterior circulation:There is normal enhancement in bilateral intradural vertebral arteries, vertebrobasilar junction, basilar artery and proximal posterior cerebral ateries. Additional findings: There is mild volume loss and encephalomalacia noted in the left posterior temporal occipital lobe, unchanged. There are mucous retention cysts or polyps in the floor of the bilateral maxillary sinuses. Remaining visualized paranasal sinuses are clear. The mastoid air cells are clear. There are lucencies adjacent to right lateral maxillary incisor, right 1st and 2nd premolar maxillary teeth. Additional lucencies are identified adjacent to left maxillary central incisor, 1st and 2nd premolar maxillary teeth and about 1st premolar right mandibular tooth. IMPRESSION: 1. No major vessel cut off or aneurysm. 2. No significant stenosis in the arteries of the xsxhnk-ar-Qyhgdy and head. 3. Several lucencies adjacent to maxillary and mandibular teeth could reflect odontogenic disease. PROCEDURE INFORMATION: Exam: CT Angiography Neck With Contrast Exam date and time: 08/22/2020 1:47 PM Age: 49 years old Clinical indication: Speech disturbance; Aphasia; Patient HX: HX hemorrhagic stroke in 09/2019 TECHNIQUE: Imaging protocol: Computed tomography angiography of the neck with intravenous contrast. 3D rendering (Not supervised by radiologist): MIP and/or 3D reconstructed images were created by the technologist. COMPARISON: CT HEAD - STROKE PROTOCOL 08/22/2020 9:39 AM FINDINGS: There is a left sided arch of aorta. Left subclavian , brachiocephalic and right subclavian arteries demonstrates normal enhancement. There is normal enhancement in bilateral common carotid arteries, carotid bifurcations and internal carotid arteries in the neck. There is mild calcification of bilateral carotid bifurcation without measurable stenosis. There is no measurable stenosis in bilateral vertebral arteries in the neck. Right vertebral artery is dominant. IMPRESSION: No measurable stenosis in the carotid or vertebral arteries. REFERENCES: NASCET CRITERIA. The degree of internal carotid artery stenosis is based on NASCET criteria. Normal is no stenosis. Mild is less than 50% stenosis. Moderate is 50-69% stenosis. Severe is 70% to 99% stenosis. Total occlusion is no detectable patent lumen. Dictated and Authenticated by: Corey Krishna MD. Ordering:ROSELINE Martínez MD
--- NOTE | 2020-08-22 16:09 | NUR.NOTE ---
Nursing Note: aware of transfer to [address] @ [facility]. Spoke with charge nurse, Ava PONCE who states no visitors, but will address this issue with want ad supervisor and will update with any changes. Nayeli aware and states she will most probably stay in a local hotel to [facility] so she may be available if needed.
[2020-08-22 22:15] LABS: COVID-19 RT-PCR UVMMC Result Negative (Negative)
--- NOTE | 2020-08-23 08:18 | NUR.NOTE ---
Nursing Note: Patient's COVID result came back today and is faxed to [facility] [address] Hedy tidwell. Becca Locke
== END 2020-08-22 16:33 | disposition short-term general hospital (02) ==
PROVIDERS: Emergency Provider Emergency Medicine; PCP Nurse Practitioner Family
DX: R47.01 Aphasia (principal); I69.898 Other sequelae of other cerebrovascular disease; G93.89 Other specified disorders of brain; G47.30 Sleep apnea, unspecified; R45.1 Restlessness and agitation; I10 Essential (primary) hypertension; Z03.818 Encounter for observation for suspected exposure to other biological agents ruled out
CPT/HCPCS: 36416; 70496; 70498; 80053; 82805; 82962; 93005; 96361; 96365; 96375; 99285; U0003; 36600; 70450; 71045; 71260; 81003; 81015; 83735; 84484; 85025; 85610; 93010; J1200; J1630; J1953; J2060; J3490

== ENCOUNTER 2020-12-30 09:51 | Outpatient (REF) | payer BC, SELFPAY ==
[2020-12-30 15:47] LABS: Hemoglobin A1C 5.3 % (<5.7)
[2020-12-30 15:53] LABS: Anion Gap 11.7 mmol/L (3-11); BUN 15 mg/dL (7-18); CO2 25.3 mmol/L (21.0-32.0); Chloride 105 mmol/L (98-107); Glucose 137 mg/dL (74-106); Potassium 4.4 mmol/L (3.5-5.1); Sodium 142 mmol/L (136-145)
[2020-12-30 16:30] LABS: Calculated LDL 77 mg/dL (<100); Cholesterol 169 mg/dL (<200); HDL Cholesterol 31 mg/dL (40-60); Triglyceride 305 mg/dL (<150)
== END 2020-12-30 09:52 | disposition home or self-care (01) ==
LOC: NCHCN 09:51
PROVIDERS: PCP Nurse Practitioner Family; Visit Provider Nurse Practitioner Family
DX: R73.03 Prediabetes (principal); Z00.00 Encounter for general adult medical examination without abnormal findings; Z13.220 Encounter for screening for lipoid disorders
CPT/HCPCS: 80048; 80061; 83036

== ENCOUNTER 2021-06-26 08:39 | Emergency (ER) | payer BC, SELFPAY ==
[2021-06-26] VITALS (45 sets, daily range): BP systolic 126–170; BP diastolic 78–99; PULSE 60–84; RESP 9–20; TEMP 36.3; O2SAT 87–100
--- NOTE | 2021-06-26 08:30 | RT.EKG_ITS ---
APPROVED REPORT Exam: Resting ECG Reason for Exam: [facility] Patient Location: E HR:69 bpm ECG Measurements Heart Rate 69 AXIS LA 150 P 22 QRSd 100 QRS -19 QT 382 T 30 QTc 410 Conclusion Sinus rhythm. Low voltage, precordial leads No ST elevation
--- NOTE | 2021-06-26 08:45 | DI.RAD_ITS ---
Exam(s) XR CHEST 2V PA LATERAL EXAM: XR CHEST 2V PA LATERAL CLINICAL HISTORY: expressive aphasia. TECHNIQUE: 2D digital imaging was performed. COMPARISON: CR,XR XR CHEST 1V IN DI DEPT from 08/22/2020 FINDINGS: Heart size is upper normal. The mediastinum is not widened. Lungs are clear. No infiltrates nor pleural effusions. No pneumothorax IMPRESSION: No acute pulmonary findings. DATA REPOSITORY: RADIATION DOSE DELIVERED:
--- NOTE | 2021-06-26 09:00 | DI.CT_ITS ---
Exam(s) CT BRAIN NECK CTA EXAM: CT BRAIN NECK CTA CLINICAL HISTORY: expressive aphasia, ? seizure. TECHNIQUE: Imaging Protocol: Axial CT angiography was performed with multi-slice acquisition and mu lti-planar and/or 3D reconstructions. CONTRAST MATERIAL: Intravenous: Omnipaque 350 Contrast volume:85 ml COMPARISON: CT CT BRAIN NECK CTA from 08/22/2020 FINDINGS: CTA Neck W: Aortic arch anatomy: The aortic arch anatomy is conventional. Anterior circulation: Both common carotid arteries ascend with normal luminal diameters. Is mild calcified plaque at the left carotid bifurcation proximal internal carotid artery but no sign ificant stenosis (approximately 10 percent). Left internal carotid artery above this level is patent but tortuous in the neck and is also demonstrated to be patent within the skull base-carotid canal. Plaque on the posterior medial wall of the proximal right internal carotid artery is noted, mostly ca lcified but without significant stenosis (10 percent). Above this level the right internal carotid a rtery in the upper neck is tortuous but patent and demonstrated be patent within the skull base-carot id canal Posterior circulation: Both vertebral arteries originate in conventional fashion off of the subclavian arteries. There is n o significant stenosis at their origins off the subclavian arteries. Both vertebral arteries ascend with approximately equal normal luminal diameters in the foramen transversarium and both vertebral ar teries contribute to the formation of the basilar artery at the skull base. CTA Brain W: Anterior circulation: Both internal carotid arteries are patent in the skull base and cavernous sinuses. Supraclinoid aspects are patent. Both A1 segments are patent as are the anterior cerebral arteries. There is no evidence of aneurysm at the level of the anterior communicating artery. Both middle cerebral arteries are patent Posterior circulation: Basilar artery is formed by both vertebral arteries at the skull base and ascends with normal luminal diameters. Distally gives off superior cerebellar arteries. There is focal stenosis in the right s uperior cerebellar artery located 5 millimeters distal to its origin. However, the this vessels valladares nt beyond this point. The basilar artery terminates as patent bilateral posterior cerebral arteries. There is no aneurysm of the tip of the basilar artery. CT BRAIN: There is mucosal thickening in both maxillary sinuses noted, not associated with fluid levels. Sphen oid sinuses and frontal sinuses are clear. Right mastoid air cells are clear. Left mastoid air cell s are sclerotic. There is no fluid in either middle ear cavity. There is no evidence of intracranial hemorrhage, mass effect, or shift of midline structures. There are no extra-axial fluid collections. Ventricles are not enlarged or shifted. There are no ring enh ancing lesions in the brain and no abnormal meningeal enhancement. IMPRESSION: 1. Mild atherosclerotic disease at the level the carotid bifurcations and proximal internal carotid a rteries. Approximately 10 percent stenosis bilaterally. No tight stenosis and no dissection. Verte bral arteries are patent. 2. Patent intracranial arteries. No aneurysms. 3. No ring enhancing lesions in the brain. No abnormal meningeal enhancement. Study 1st read by Amalia RODRIGUEZ [facility] RADIATION DOSE DELIVERED: 2,486.25mGy.cm Total DLP DATA REPOSITORY: All CT scans at this facility are submitted to the National Radiology Data Registry (NRDR) Dose Index Registry (DIR) with the [employer] (ACR). RADIATION OPTIMIZATION: All CT scans at this facility use at least one of these dose optimization te chniques: automated exposure control; mA and/or kV adjustment per patient size (includes targeted exa ms where dose is matched to clinical indication); or iterative reconstruction.
[2021-06-26] MEDS: LORazepam 2 MG/ML VIAL 0.5 MG IVP ×2 (09:02→09:32)
--- NOTE | 2021-06-26 09:04 | ED.GENADUL_ITS ---
Discharge Plan Disposition Patient Disposition: HOME Condition: Improving Discharge Details Clinical Impression: Breakthrough seizure Primary Care Provider: Michelle Lozada ED Provider: Mauricio Knott Home Meds and New Rx's Prescriptions: New valproic acid 250 mg capsule 250 mg PO QHS Qty: 30 RF: 0 Continued lisinopril 30 mg tablet 30 mg PO DAILY RF: 0 hydrochlorothiazide 25 mg tablet 12.5 mg PO DAILY RF: 0 divalproex 500 mg tablet extended release 24 hr 500 mg PO BID RF: 0 Discharge Instructions Instructions: Recurrent Seizures in Adults (ED) Additional Instructions: I discussed your case with Dr. Petersen of [facility] neurology. She asked you increase your valproic acid to 500 mg in the morning and 750 mg at night. See enclosed prescription for the additional 250 mg dose. You will likely be sleepy and need increased rest today. Return if you have recurrent lipsmacking, deviation of the head to the side, or unresponsiveness.x Stand Alone Forms: Work Release Referrals: Raquel Petersen [ NON-[facility] STAFF PHYSICIAN] - Medical Decision Making 50-year-old male presents from home with his with approximately 20 to 30 minutes of difficulty with speech. Began with some garbled words and then she noticed some lip smacking. 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 Patient has a history of left temporoparietal occipital intracranial hemorrhage in September 2019. He has been maintained on antihypertensives and valproic acid since having the aft forementioned seizure in July 2020. He arrives to the ED with slightly rightward gaze, lipsmacking, and unable to respond verbally. IV access established, patient placed on cardiac catheterization technologist, screening labs obtained. Given sinus includes post stroke seizure, must exclude new onset intracranial process. Patient given 1 mg of Ativan, 500 mg of valproic acid, referred for stat noncontrast CT scan and CTA of brain and neck. CT head and CTA brain and neck are unremarkable for acute process. Laboratories note a white count of 9, hematocrit 46, platelets 267. Chemistries unremarkable, troponin negative. Valproic acid level 60.4. Patient had a brief nap, awoke with no further lipsmacking or right head deviation. He is conversant with his . States he feels better. He was ambulatory to the bathroom without assistance. He is conversant and appro priate. Case discussed with on-call neurology, Dr. Petersen who is seen the patient in clinic. We will increase the Depakote to 500 in the morning and 250 mg at night. [facility] neurology will arrange outpatient follow-up for the patient. HPI General Mode of arrival: ambulatory . Date/Time Provider Initiated Documentation: 06/26/21 08:40 . Limitations to Documentation: no limitations . Information obtained by: patient and family . History of Present Illness 50 year old M presents to the emergency department with the chief complaint of Difficulty with speech and face twitching, described as moderate, Quality is described as constant, and is localized to the face and mouth. Patient reports no radiation. Patient started experiencing this minute(s) and it has been constant. No relieving factors improve symptom(s), No exacerbating factors reported . Patient notes denies chest pain, headaches, nausea/vomiting, syncope and weakness. Patient did receive the following treatments prior to arrival, none Related Data Home Medications Medication Instructions Recorded Confirmed hydrochlorothiazide 12.5 mg PO DAILY 07/26/20 06/26/21 lisinopril 30 mg PO DAILY 07/26/20 06/26/21 divalproex 500 mg PO BID 06/26/21 06/26/21 valproic acid 250 mg PO QHS #30 cap 06/26/21 Previous Rx's Medication Instructions Recorded valproic acid 250 mg PO QHS #30 cap 06/26/21 Allergies Allergy/AdvReac Type Severity Reaction Status Date / Time No Known Allergies Allergy Unverified 06/26/21 08:51 General Stated Complaint: CVA/TIA LIVAN: 1 Review of Systems Narrative: No recent illness. Similar to previous episode when he was diagnosed with seizures. Has been taking medications. Decreased p.o. intake x2 days, mild weakness. 8 systems reviewed and otherwise negative [facility] Medical History Hemorrhagic stroke Hypertension Prediabetes Tobacco abuse Social History Smoking/Tobacco Use Status: Current every day Tobacco Type: cigarettes and smokeless tobacco Smoking risk assessment performed?: Yes Alcohol Intake: never Drug use: Never Substance use type: does not use Do you feel safe at home: Yes Do you feel safe in your relationship?: Yes Exam Narrative Exam Narrative: GEN: awake, alert. Pleasant, well groomed, interactive. HEAD: Normocephalic, atraumatic ENT: Mucous membranes moist, oropharynx unremarkable, External ear exam unremarkable EYES: PERRL, EOMI NECK: Full ROM, no JANKI, no menigismus CHEST/RESP: Nontender, clear to auscultation bilateral, no wheeze/rhonchi/rales CARDIOVASCULAR: RRR, no murmur, rub agustina. 2+ Rad pulse bilateral ABDOMEN: Soft, nontender, no mass. +Bowel sounds EXT: Full ROM, no edema, no rash Neuro: Grossly normal neurologic exam, no facial droop, no motor weakness. Patient has slight rightward gaze and lip smacking. Psych: Unable to assess Course Vital Signs Vital signs: Vital Signs Temperature 36.3 C L 06/26/21 08:46 Pulse 71 06/26/21 08:46 Respiratory Rate 16 06/26/21 08:46 Blood Pressure 153/88 H 06/26/21 08:46 Pulse Oximetry 92 06/26/21 08:46 Temperature 36.3 C L 06/26/21 08:46 Temperature Source Skin 06/26/21 08:46 Pulse 71 06/26/21 08:46 Respiratory Rate 16 06/26/21 08:46 Respiratory Effort Non-Labored 06/26/21 08:46 Blood Pressure 153/88 H 06/26/21 08:46 Blood Pressure Position Supine 06/26/21 08:46 Pulse Oximetry 92 06/26/21 08:46 Oxygen Delivery Method Room Air 06/26/21 08:46 Oxygen Flow Rate 0 06/26/21 08:46 Pain Level 0 06/26/21 08:46
[2021-06-26 09:10] LABS: Abs Immature Grans 0.02 10^3/uL (0.0-0.06); Absolute Basophil Count 0.07 10^3/uL (0.0-0.2); Absolute Eosinophil Count 0.47 10^3/uL (0.0-0.7); Absolute Lymphocyte Count 4.26 10^3/uL (1.2-3.4); Absolute Monocyte Count 0.82 10^3/uL (0.1-0.8); Absolute Neutrophil Count 4.29 10^3/uL (1.2-6.7); Basophils % 0.7; Eosinophils % 4.7; HCT 46.4 % (40.0-50.0); HGB 15.5 g/dL (13.5-17.5); Immature Grans % 0.2; Lymphocytes % 42.9; MCH 32.3 pg (27.0-33.0); MCHC 33.4 % (32.0-36.0); MCV 96.7 fL (80-95); MPV 10.8 fL (8.0-11.0); Monocytes % 8.3; Neutrophils % 43.2; Nucleated RBC 0 %; Platelet Count 267 10^3/uL (130-400); RDW 12.1 % (11.8-14.1); WBC 9.93 10^3/uL (4.4-10.8)
[2021-06-26 09:20] LABS: VALPROIC ACID 60.4 ug/mL
[2021-06-26 09:24] LABS: ALT 16 U/L (16-63); AST 14 U/L (15-37); Albumin 3.9 g/dL (3.4-5.0); Alkaline Phosphatase 82 U/L (46-116); BUN 18 mg/dL (7-18); Bilirubin, Total 0.5 mg/dL (0.2-1.0); CREATININE 1.1 mg/dL (0.70-1.30); Calcium 8.6 mg/dL (8.5-10.1); Chloride 106 mmol/L (98-107); Glucose 95 mg/dL (74-106); Magnesium 2.3 mg/dL (1.8-2.4); Sodium 143 mmol/L (136-145); Total Protein 7.7 g/dL (6.4-8.2)
[2021-06-26 09:27] LABS: Troponin I < 0.05 ng/mL (<0.06)
[2021-06-26] MEDS: VALPROATE SODIUM 500 MG in Normal Saline 50 ML 50 MG IVPB (09:33)
[2021-06-26] MEDS: Omnipaque 350 MG/ML 100 ML BTL IJ (09:34)
[2021-06-26] MEDS: Normal Saline Flush 10 ML SYR IVP (09:35)
[2021-06-26] MEDS: Normal Saline - Diluent 50 ML VIAL IV (09:35)
--- NOTE | 2021-06-26 09:43 | DI.VRAD_ITS ---
PROCEDURE INFORMATION: Exam: CT Angiography Head With Contrast, Arteriography Exam date and time: 06/26/2021 9:03 AM Age: 50 years old Clinical indication: Other: Expressive aphasia, ? seizure TECHNIQUE: Imaging protocol: Computed tomography angiography of the head with contrast. Exam focused on the arteries. 3D rendering (Not supervised by radiologist): MIP and/or 3D reconstructed images were created by the technologist. Radiation optimization: All CT scans at this facility use at least one of these dose optimization techniques: automated exposure control; mA and/or kV adjustment per patient size (includes targeted exams where dose is matched to clinical indication); or iterative reconstruction. Contrast material: OMNIPAQUE 350; Contrast volume: 85 ml; Contrast route: INTRAVENOUS (IV); COMPARISON: CT BRAIN NECK CTA 08/22/2020 1:49 PM FINDINGS: ANTERIOR CIRCULATION: Right internal carotid artery: Unremarkable. Intracranial segment is patent with no significant stenosis. No aneurysm. Right middle cerebral artery: Unremarkable. No occlusion or significant stenosis. No aneurysm. Right anterior cerebral artery: Unremarkable. No occlusion or significant stenosis. No aneurysm. Left internal carotid artery: Unremarkable. Intracranial segment is patent with no significant stenosis. No aneurysm. Left middle cerebral artery: Unremarkable. No occlusion or significant stenosis. No aneurysm. Left anterior cerebral artery: Unremarkable. No occlusion or significant stenosis. No aneurysm. POSTERIOR CIRCULATION: Right vertebral artery: Unremarkable. No occlusion or significant stenosis. No aneurysm. Left vertebral artery: Unremarkable. No occlusion or significant stenosis. No aneurysm. Basilar artery: Unremarkable. No occlusion or significant stenosis. No aneurysm. Right posterior cerebral artery: Unremarkable. No occlusion or significant stenosis. No aneurysm. Left posterior cerebral artery: Unremarkable. No occlusion or significant stenosis. No aneurysm. Brain: No definite mass, mass effect, or midline shift. Cerebral ventricles: No ventriculomegaly. Bones/joints: Unremarkable. No acute fracture. Soft tissues: Unremarkable. IMPRESSION: No large vessel stenosis or occlusion. PROCEDURE INFORMATION: Exam: CT Angiography Neck With Contrast Exam date and time: 06/26/2021 9:03 AM Age: 50 years old Clinical indication: Other: Expressive aphasia, ? seizure TECHNIQUE: Imaging protocol: Computed tomography angiography of the neck with contrast. 3D rendering (Not supervised by radiologist): MIP and/or 3D reconstructed images were created by the technologist. Radiation optimization: All CT scans at this facility use at least one of these dose optimization techniques: automated exposure control; mA and/or kV adjustment per patient size (includes targeted exams where dose is matched to clinical indication); or iterative reconstruction. Contrast material: OMNIPAQUE 350; Contrast volume: 85 ml; Contrast route: INTRAVENOUS (IV); COMPARISON: CT BRAIN NECK CTA 08/22/2020 1:49 PM FINDINGS: Right common carotid artery: No stenosis. No dissection or occlusion. Right internal carotid artery: No stenosis of the extracranial segment. No dissection or occlusion. Right external carotid artery: No occlusion or stenosis of the origin. Left common carotid artery: No stenosis. No dissection or occlusion. Left internal carotid artery: No stenosis of the extracranial segment. No dissection or occlusion. Left external carotid artery: No occlusion or stenosis of the origin. Right vertebral artery: No stenosis. No dissection or occlusion. Left vertebral artery: No stenosis. No dissection or occlusion. Soft tissues: Normal. No significant soft tissue swelling. Bones/joints: No acute fracture. IMPRESSION: No stenosis or occlusion. REFERENCES: NASCET CRITERIA. The degree of internal carotid artery stenosis is based on NASCET criteria. Normal is no stenosis. Mild is less than 50% stenosis. Moderate is 50-69% stenosis. Severe is 70% to 99% stenosis. Total occlusion is no detectable patent lumen. Dictated and Authenticated by: Robyn Ceja MD. Ordering:ROSELINE Martínez MD
[2021-06-26 09:44] LABS: Source Nasal/Nares
--- NOTE | 2021-06-26 09:45 | DI.VRAD_ITS ---
PROCEDURE INFORMATION: Exam: XR Chest Exam date and time: 06/26/2021 9:00 AM Age: 50 years old Clinical indication: Other: Expressive aphasia TECHNIQUE: Imaging protocol: XR of the chest. Views: 2 views. COMPARISON: CT CHEST W 08/22/2020 12:13 PM FINDINGS: Lungs: Unremarkable. No consolidation. Pleural spaces: Unremarkable. No pleural effusion. No pneumothorax. Heart/Mediastinum: Unremarkable. No cardiomegaly. Bones/joints: Unremarkable. IMPRESSION: No acute findings. Dictated and Authenticated by: Robyn Ceja MD. Ordering:ROSELINE Martínez MD
[2021-06-26 12:07] LABS: Troponin I < 0.05 ng/mL (<0.06)
[2021-06-26 18:23] LABS: COVID-19 PCR Negative (Negative)
== END 2021-06-26 12:55 | disposition home or self-care (01) ==
PROVIDERS: Emergency Provider Emergency Medicine; PCP Nurse Practitioner Family
DX: G40.802 Other epilepsy, not intractable, without status epilepticus (principal); R47.01 Aphasia; R41.82 Altered mental status, unspecified
CPT/HCPCS: 36415; 36416; 70496; 70498; 80053; 82962; 87635; 93005; 96365; 96375; 96376; 99285; 71046; 80164; 83735; 84484; 85025; 93010; 99284; J2060; J3490

== ENCOUNTER 2021-10-18 17:39 | Observation (INO) | payer BC, SELFPAY ==
[2021-10-18] VITALS (26 sets, daily range): BP systolic 90–162; BP diastolic 56–99; PULSE 73–109; RESP 11–22; TEMP 36.7–37; O2SAT 91–99
--- NOTE | 2021-10-18 17:45 | DI.CT_ITS ---
Exam(s) CT HEAD - STROKE PROTOCOL EXAM: CT HEAD - STROKE PROTOCOL CLINICAL HISTORY: aphasic. TECHNIQUE: Imaging Protocol: Axial computed tomography images with coronal and sagittal reformatted images were created and reviewed COMPARISON: CT CT BRAIN NECK CTA from 06/26/2021 FINDINGS: There is moderate generalized cerebral atrophy and there are patchy areas of decreased attenuation i n periventricular white matter bilaterally which are nonspecific but which may represent microvascula r ischemic changes. Presumed old small left occipital infarct noted, unchanged from prior examinatio n of July 2020. No evidence of acute intracranial hemorrhage, mass effect, or midline shift. The orbital structures are unremarkable. The temporal bone structures appear intact. Calvarium: Normal. Visualized Paranasal sinuses/Mastoids: Clear except for presumed left maxillary retention cyst. IMPRESSION: No evidence of acute intracranial process.. RADIATION DOSE DELIVERED: 905.91mGy.cm Total DLP 905.91mGy.cm Total DLP !Error CTDIvol DATA REPOSITORY: All CT scans at this facility are submitted to the National Radiology Data Registry (NRDR) Dose Index Registry (DIR) with the [employer] (ACR). RADIATION OPTIMIZATION: All CT scans at this facility use at least one of these dose optimization te chniques: automated exposure control; mA and/or kV adjustment per patient size (includes targeted exa ms where dose is matched to clinical indication); or iterative reconstruction.
--- NOTE | 2021-10-18 17:45 | RT.EKG_ITS ---
APPROVED REPORT Exam: Resting ECG Reason for Exam: aphasic Patient Location: E HR:104 bpm ECG Measurements Heart Rate 104 AXIS TN 155 P 40 QRSd 104 QRS -24 QT 329 T 104 QTc 433 Conclusion Sinus tachycardia...rate> 99. Sinus. No STEMI. I have reviewed and interpreted ECG and agree with software generated interpretation.
[2021-10-18] MEDS: LORazepam 2 MG/ML VIAL ×3 (17:58→20:25)
--- NOTE | 2021-10-18 18:03 | W.ED.GENAD ---
Discharge Plan Disposition Condition: Improving Discharge Details Chief Complaint: Seizure Admit Date/Time: 10/18/21 21:30 Admit Provider: Mateusz Young Attending Provider: Mateusz Young Primary Care Provider: Michelle Lozada ED Provider: Janelle Tamayo Discharge Instructions Activity:: see additional instruct Equipment/Supplies:: No Equipment Needed Diet:: Normal Diet Discharge Orders Discharge Orders: Discharge Order (Routine); Ordered 10/19/21 Ordered By: Bennett Santos Discharge Data Discharge Date/Time-TO BE ENTERED AT DEPARTURE: 10/18/21 22:38 Medical Decision Making Patient is a 51 year old male, hx of intraparenchyma hemorrhage of brain 2 years ago. Has had subsequent seizures per . Last seizure was in April. Patient is controlled on valproic acid. No known missed doses per . 5-6 minutes prior to arrival, patient lost ability to speak while in the car with his . She states this is how he presented with his bleed in the past. She states that prior to becoming completely aphasic, patient was asymptomatic, not endorsing any headache, no deficits noted. Has been normal throughout the rest of the day. She states that he has been taking his medications as prescribed. BGL 155. Patient has head deviated towards the right and is completely aphasic at this time. We will move forward with immediate CT imaging to evaluate for potential brain bleed. When patient returned from imaging, felisa noted to have unusual eye movements. Gross right beating nystagmus, fluttering eyelids. No other abnormal movements. is now reporting that he has had similar episode with seizures in the past. Last seizure was in April after gonzalest missed medications. She states chronic seizure disorder since his ICH. She reports he has not missed any doses of medications. Plan to treat for presumed seizure, slight movements, fairly subclinical. No tonic-clonic movements. Estimated seizure time 12 minutes, patient given 4mg Ativan IV. Patient is on Depakote. Spoke with Dr. Andre, she evaluated the patient as well. Concerned about loading the patient with Depakote vs. a typical first line agent, will consult with neurology. Eye movement has subsided, patients foced deviation of his head to the right has subsided. He appears more calm. Consulted with Dr. Pacheco. She recommended 2g loading dose of Keppra. Patient has repetitve movement of right index finger, slight fluttering of the eyes, given another 2mg Ativan. Patient appears calmer but is not speaking. Withdrawals to pain. No posturing. No continued abnormal movements. HOwever, I am still concerned for subclinical seizures as his initial presentation was fairly subtle. We do not havae EEG capability. Consulted with [facility] neurology Dr. Mirza. She recommended 60mg/kg Keppra dosing. She recommended another 1.5g keppra on top of the 3g load now. If he continues or starts, recommended that we could intubate and use propofol. They do not have bed availability at this time. Requested consultation with [facility] to check for bed availability for transfer for status epilepticus. Labs reviewed, no acute abnormality noted. ECG revieweed by Dr. Andre, no acute ischemic changes noted. Patient continues to be calm. Appears to be sleeping. Has had some purposeful movements to pull at nasal canula, itch his face. Has not spoken or returned to baseline. Consulted with Dr. Knott with [facility] neurology. He advised that best care at this time would be for patient to be followed at [facility]. Advised keeping the patient on his Depakote and the Keppra currently. They do not have bed availability either. He advised trying to Give the evening Depakote as Depakon 1:1, 750mg tonight. Advised he could get another 1,000mg Keppra tonight if needed. Can go home after returning back to his baseline. Patient sudden woke up, jumped out of bed trying to urinate. He is clearly confused, is speaking but is fairly nonsensical and aggressive. Nursing staff, his and myself atttempted to calm him down. Concerned for his sately with him up and around when he is still weak and appears unstable. Patient pulled out his IV access despite verbal deescalation and attempts at redirection. To calm the patient and ensure his safety to prevent self-injury, patient given 2mg IM Ativan. reports that patient typically wakes aggressive and confused in the postictal period. Patient calm, with at bed side. Speaking when awake, no further evidence of seizure activity. As patient is no longer having evidence of acitve seizure, and is rerturning to baseline, and there is no bed availability at [facility] or [facility], will admit here for continued monitoring and treatment. Consulted with Dr. Young who agrees to admission. HPI General Mode of arrival: wheelchair. Date/Time Provider Initiated Documentation: 10/18/21 17:41. Limitations to Documentation: physical limitation (patient is aphasic). Information obtained by: family (), RN notes reviewed and old records reviewed. HPI Narrative: Patient is a 51 year old male brought in by via wheelchair for evaluation of aphasia. states that he has had episodes like htis in the past. They were in the car, stopped speaking 5-6 minutes prior to arrival. reports this is similar to when he has had spontaneous ICH about 2 years ago. reports that he was acting normally and was not endorsing any pain or change in mentation prior to the sudden onset of complete aphasia. Patient has not lost tone but needed to be assisted from the car by the nursing staff. denies missed medications, no recent illness, no recent change in medications, no recent trauma. Related Data Home Medications Medication Instructions Recorded Confirmed hydrochlorothiazide 25 mg tablet 12.5 mg PO DAILY 07/26/20 10/18/21 lisinopril 30 mg tablet 30 mg PO DAILY 07/26/20 10/18/21 divalproex 250 mg tablet,delayed 250 mg PO DAILY AM #30 tab 10/19/21 release divalproex 500 mg tablet,delayed See Rx Instructions .ROUTE 10/19/21 release .COMPLEX #90 tab Previous Rx's Medication Instructions Recorded divalproex 250 mg tablet,delayed 250 mg PO DAILY AM #30 tab 10/19/21 release divalproex 500 mg tablet,delayed See Rx Instructions .ROUTE 10/19/21 release .COMPLEX #90 tab Allergies Allergy/AdvReac Type Severity Reaction Status Date / Time No Known Allergies Allergy Unverified 10/18/21 18:26 General LIVAN: 1 Review of Systems Unobtainable due to mental condition PFSH All Active Problems Encounter for medication monitoring (Acute) Intraparenchymal hemorrhage of brain (Acute) Breakthrough seizure (Acute) Medical History Hemorrhagic stroke Hypertension Prediabetes Tobacco abuse Social History Smoking/Tobacco Use Status: Current every day Tobacco Type: cigarettes and smokeless tobacco Smoking risk assessment performed?: Yes Alcohol Intake: never Drug use: Never Substance use type: does not use Do you feel safe at home: Yes Do you feel safe in your relationship?: Yes Exam Const General: not healthy appearing and ill appearing acutely Nutritional Appearance: well nourished and overweight Orientation: awake (eyes open, tone intact, unable to follow any commands) [facility] Head: normal to inspection, no palpable skull fracture, normocephalic and atraumatic Ears: external ears normal and TM's normal bilaterally General nose exam: external nose normal Face and sinus: normal facial exam Mouth: oral mucosae normal, lip normal and tongue normal Eyes Visual Wright: visual wright abnormal by confrontation (unable to assess at this time) Alignment and Position: other (eyes are fixed to the right with a gross right beating, unprovoked nystagmu) Periorbital: periorbital findings normal Eyelids: eyelids normal Conjunctivae: conjunctivae normal Sclera: sclerae normal Pupils: PERRL Neck Neck: normal visual inspection, no lymphadenopathy, trachea midline and supple Chest Chest: normal inspection of the chest and normal palpation of entire chest wall Resp Effort & Inspection: normal respiratory effort and no respiratory distress Auscultation: clear to auscultation bilaterally Cardio Rate: regular rate Rhythm: regular rhythm Heart Sounds: S1 normal and S2 normal GI Inspection: normal to inspection Palpation: soft, no hepatosplenomegaly, no aortic enlargement and nontender Back/Spine/Pelvis Cervical Spine: cervical ROM normal Thoracic/Lumbar Spine: thoracic and lumbar spine normal to inspection Skin General skin exam: no rashes or lesions noted Neuro General: patient awake, not oriented x3, gait abnormal, tone normal and CN's II-XI not intact bilaterally (unable to assess ) Cognition: abnormal cognition Speech: expressive aphasia and receptive aphasia Gait: gait abnormal (in wheelchair) Motor: muscle tone normal throughout (moving extreemities without real purpose, withdrawals to pain) Plantar Reflexes: Equivocal: bilateral Extrem General: normal to inspection, capillary refill normal, no joint enlargement, no pedal edema and no calf tenderness Psych Appearance: grossly normal and well kempt Mental Status: mental status grossly normal Speech and Movement: speech and movement normal
--- NOTE | 2021-10-18 18:06 | DI.VRAD_ITS ---
PROCEDURE INFORMATION: Exam: CT Head Without Contrast Exam date and time: 10/18/2021 5:46 PM Age: 51 years old Clinical indication: Other: Aphasic TECHNIQUE: Imaging protocol: Computed tomography of the head without contrast. Radiation optimization: All CT scans at this facility use at least one of these dose optimization techniques: automated exposure control; mA and/or kV adjustment per patient size (includes targeted exams where dose is matched to clinical indication); or iterative reconstruction. Other technique: STROKE PROTOCOL was implemented. COMPARISON: CT HEAD - STROKE PROTOCOL 08/22/2020 9:39 AM FINDINGS: Brain: No acute intracerebral abnormality or injury. No acute infarct or intracerebral bleed. Moderate patchy periventricular leukomalacia in both cerebral hemispheres, consistent most likely with chronic underlying small vessel / microvascular ischemic disease. 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 [place] Stroke Program Early CT Score (ASPECTS score) = 10, negative for acute intracerebral infarct. Cerebral ventricles: No ventriculomegaly. Paranasal sinuses: A small mucosal retention cyst versus polyp is present in the posterior left maxillary sinus. Mastoid air cells: Visualized mastoid air cells are well aerated. Bones/joints: Unremarkable. No acute fracture. Soft tissues: Unremarkable. IMPRESSION: 1. No acute intracerebral abnormality or injury. No acute infarct or intracerebral bleed. 2. Moderate patchy periventricular leukomalacia in both cerebral hemispheres, consistent with chronic underlying small vessel / microvascular ischemic disease. 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 [facility]. [facility] Stroke Program Early CT Score (ASPECTS score) = 10, negative for acute intracerebral infarct. 4. A small mucosal retention cyst versus polyp is present in the posterior left maxillary sinus. Dictated and Authenticated by: Ramón Santana MD. Ordering:ROMAN Luis MD
[2021-10-18 18:07] LABS: Abs Immature Grans 0.03 10^3/uL (0.0-0.06); Absolute Basophil Count 0.06 10^3/uL (0.0-0.2); Absolute Eosinophil Count 0.44 10^3/uL (0.0-0.7); Absolute Lymphocyte Count 4.84 10^3/uL (1.2-3.4); Absolute Monocyte Count 1.13 10^3/uL (0.1-0.8); Absolute Neutrophil Count 4.66 10^3/uL (1.2-6.7); Basophils % 0.5; Eosinophils % 3.9; HCT 46.9 % (40.0-50.0); HGB 15.7 g/dL (13.5-17.5); Immature Grans % 0.3; Lymphocytes % 43.4; MCH 32.2 pg (27.0-33.0); MCHC 33.5 % (32.0-36.0); MCV 96.1 fL (80-95); MPV 10.5 fL (8.0-11.0); Monocytes % 10.1; Neutrophils % 41.8; Nucleated RBC 0 %; Platelet Count 245 10^3/uL (130-400); RBC 4.88 10^6/uL (4.36-5.78); RDW 12.2 % (11.8-14.1); RDW-SD 43.2 fL; WBC 11.16 10^3/uL (4.4-10.8)
[2021-10-18] MEDS: LORazepam 2 MG/ML VIAL IVP (18:10)
[2021-10-18] MEDS: levETIRAcetam 2,000 MG in Normal Saline 100 ML 400 MG IVPB (18:23)
[2021-10-18] MEDS: Normal Saline 1,000 ML 1000 ML IV (18:29)
[2021-10-18 18:39] LABS: ALT 20 U/L (16-63); AST 14 U/L (15-37); Albumin 3.8 g/dL (3.4-5.0); Alkaline Phosphatase 71 U/L (46-116); Anion Gap 9.9 mmol/L (3-11); BUN 13 mg/dL (7-18); Bilirubin, Total 0.3 mg/dL (0.2-1.0); CO2 28.1 mmol/L (21.0-32.0); CREATININE 1.1 mg/dL (0.70-1.30); Calcium 8.6 mg/dL (8.5-10.1); Chloride 102 mmol/L (98-107); Glucose 164 mg/dL (74-106); Magnesium 2.2 mg/dL (1.8-2.4); Potassium 3.5 mmol/L (3.5-5.1); Sodium 140 mmol/L (136-145); Total Protein 7.6 g/dL (6.4-8.2); Troponin I < 50 ng/L (<or=60)
[2021-10-18 20:57] LABS: ETHANOL BLOOD < 3.0 mg/dL (<10)
[2021-10-18 21:09] LABS: VALPROIC ACID 44.3 ug/mL
[2021-10-18 21:23] LABS: Creatine Kinase 140 U/L (39-308)
[2021-10-18 21:23] LABS: Source Nasopharynx
--- NOTE | 2021-10-18 21:38 | W.PM.HP.N ---
Assessment and Plan Assessment and plan (1) Status epilepticus: Status: Acute Assessment and plan: He seems to be stable at the present time although he just had a dose of lorazepam. We will continue Depakote and Keppra and as needed lorazepam. Neurology consultation reordered tomorrow. His Depakote levels low and will increase his dose of Depakote. History of Present Illness History of Present Illness Chief Complaint: seizure Narrative: This 51-year-old male presented to emergency department with aphasia. He has a history of a intracranial hemorrhage about 2 years ago. About a year later than that the developed seizure and was placed on Depakote. He had another seizure about 6 months ago. His 2 seizures have been associated with difficulty with his speech but today he was aphasic. He did have difficulty with speech following the brain hemorrhage and some confusion. He has had no sequela except that occasionally gets confused and has difficulty with spelling. He seemed fine earlier today. His said he has not missed any of his doses of valproic acid. He has received Keppra 4.5 g, 8 mg of lorazepam here in the emergency department. When he presented here he was not able to verbalize anything but would just staring off into space. 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 He has had his coronavirus vaccines and booster. The provider in emergency department did consult with [facility] and [facility] but neither could take him under their care tonight. He was in a postictal state not long ago and because of his foul language and difficulty with confusion and agitation he was given 2 more milligrams of lorazepam giving a total dose of 8 mg since admission here. Review of Systems Unobtainable due to mental status [facility] All Active Problems (Updated 10/18/21 @ 21:53 by Mateusz Young MD) Status epilepticus (Acute) Intraparenchymal hemorrhage of brain (Acute) Breakthrough seizure (Acute) Medical History Hemorrhagic stroke Hypertension Prediabetes Tobacco abuse Social History Smoking/Tobacco Use Status: Current every day Tobacco Type: cigarettes and smokeless tobacco Smoking risk assessment performed?: Yes Alcohol Intake: never Drug use: Never Substance use type: does not use Do you feel safe at home: Yes Do you feel safe in your relationship?: Yes Meds Allergies and Home Medications Allergies Allergy/AdvReac Type Severity Reaction Status Date / Time No Known Allergies Allergy Unverified 10/18/21 18:26 Home Medications Medication Instructions Recorded Confirmed Type hydrochlorothiazide 25 mg tablet 12.5 mg PO DAILY 07/26/20 10/18/21 History lisinopril 30 mg tablet 30 mg PO DAILY 07/26/20 10/18/21 History divalproex 500 mg tablet,extended 500 mg PO BID 06/26/21 10/18/21 History release 24 hr valproic acid 250 mg capsule 250 mg PO QHS #30 cap 06/26/21 10/18/21 Rx Exam Const General: healthy appearing, no acute distress, lethargic and well hydrated Resp Auscultation: clear to auscultation bilaterally, no rales and no rhonchi Cardio Rate: regular rate Rhythm: regular rhythm Heart Sounds: S1 normal, S2 normal, no gallops, no murmurs and no rubs GI Inspection: normal to inspection and non-distended Palpation: soft, no hepatosplenomegaly, no masses and nontender Neuro General: patient obtunded Results Labs Result diagrams: 10/18/21 17:55 10/18/21 17:55 Labs: Laboratory Results - last 24 hr 10/18/21 10/18/21 10/18/21 17:55 17:55 17:55 WBC 11.16 H RBC 4.88 Hgb 15.7 Hct 46.9 MCV 96.1 H MCH 32.2 MCHC 33.5 RDW 12.2 Plt Count 245 MPV 10.5 Immature Gran % 0.3 Neutrophils % 41.8 Lymphocytes % 43.4 Monocytes % 10.1 Eosinophils % 3.9 Basophils % 0.5 Nucleated RBC % 0 Absolute Neutrophils 4.66 Absolute Lymphocytes 4.84 H Absolute Monocytes 1.13 H Absolute Eosinophils 0.44 Absolute Basophils 0.06 Sodium 140 Potassium 3.5 Chloride 102 Carbon Dioxide 28.1 Anion Gap 9.9 BUN 13 Creatinine 1.1 Estimated GFR/1.73 m2 >= 60.00 Glucose 164 H Calcium 8.6 Magnesium 2.2 Total Bilirubin 0.3 AST 14 L ALT 20 Alkaline Phosphatase 71 Creatine Kinase 140 Troponin I < 50 Total Protein 7.6 Albumin 3.8 Valproic Acid Ethyl Alcohol COVID-19 Source 10/18/21 10/18/21 10/18/21 17:55 17:55 20:00 WBC RBC Hgb Hct MCV MCH MCHC RDW Plt Count MPV Immature Gran % Neutrophils % Lymphocytes % Monocytes % Eosinophils % Basophils % Nucleated RBC % Absolute Neutrophils Absolute Lymphocytes Absolute Monocytes Absolute Eosinophils Absolute Basophils Sodium Potassium Chloride Carbon Dioxide Anion Gap BUN Creatinine Estimated GFR/1.73 m2 Glucose Calcium Magnesium Total Bilirubin AST ALT Alkaline Phosphatase Creatine Kinase Troponin I Total Protein Albumin Valproic Acid 44.3 Ethyl Alcohol < 3.0 COVID-19 Source Nasopharynx Last Vital Signs Temp 37.0 C 10/18/21 18:06 Pulse 79 10/18/21 19:16 Resp 15 10/18/21 19:16 BP 120/86 10/18/21 19:16 Pulse Ox 98 10/18/21 19:16
[2021-10-18 22:26] LABS: COVID-19 PCR Negative (Negative)
[2021-10-18 23:42] LABS: Troponin I < 50 ng/L (<or=60)
[2021-10-19] VITALS (19 sets, daily range): BP systolic 85–116; BP diastolic 59–76; PULSE 74–86; RESP 12–25; TEMP 36.4–36.6; O2SAT 88–97
--- NOTE | 2021-10-19 | DI.RAD_ITS ---
Exam(s) XR PORTABLE CHEST AP EXAM: XR PORTABLE CHEST AP CLINICAL HISTORY: seizure. TECHNIQUE: 2D digital imaging was performed. COMPARISON: CR,XR XR CHEST 2V PA LATERAL from 06/26/2021 FINDINGS: LUNGS: Clear. No pleural abnormality seen. HEART: Normal. MEDIASTINUM: Normal. OTHER FINDINGS: None. IMPRESSION: No acute pulmonary findings. DATA REPOSITORY: RADIATION DOSE DELIVERED: Total DLP
--- NOTE | 2021-10-19 06:31 | DI.VRAD_ITS ---
PROCEDURE INFORMATION: Exam: XR Chest Exam date and time: 10/19/2021 3:37 AM Age: 51 years old Clinical indication: Other: Seizure TECHNIQUE: Imaging protocol: XR of the chest. Views: 1 view. COMPARISON: CR XR CHEST 2V PA LATERAL 06/26/2021 9:20 AM FINDINGS: Limited due to rotation Lungs: No consolidation. Pleural spaces: No pleural effusion. No pneumothorax. Heart/Mediastinum: Grossly stable Bones/joints: Grossly stable. IMPRESSION: No acute findings. Dictated and Authenticated by: Michele Mederos MD. Ordering:ROMAN Luis MD
[2021-10-19 07:11] LABS: Abs Immature Grans 0.04 10^3/uL (0.0-0.06); Absolute Basophil Count 0.05 10^3/uL (0.0-0.2); Absolute Eosinophil Count 0.24 10^3/uL (0.0-0.7); Absolute Lymphocyte Count 2.66 10^3/uL (1.2-3.4); Absolute Monocyte Count 0.79 10^3/uL (0.1-0.8); Absolute Neutrophil Count 5.58 10^3/uL (1.2-6.7); Basophils % 0.5; Eosinophils % 2.6; HCT 44.3 % (40.0-50.0); HGB 14.8 g/dL (13.5-17.5); Immature Grans % 0.4; Lymphocytes % 28.4; MCH 31.8 pg (27.0-33.0); MCHC 33.4 % (32.0-36.0); MCV 95.1 fL (80-95); MPV 10.8 fL (8.0-11.0); Monocytes % 8.4; Neutrophils % 59.7; Nucleated RBC 0 %; Platelet Count 218 10^3/uL (130-400); RBC 4.66 10^6/uL (4.36-5.78); RDW 12.3 % (11.8-14.1); WBC 9.36 10^3/uL (4.4-10.8)
[2021-10-19 07:23] LABS: Anion Gap 9.8 mmol/L (3-11); BUN 12 mg/dL (7-18); CO2 28.2 mmol/L (21.0-32.0); Calcium 8.2 mg/dL (8.5-10.1); Chloride 106 mmol/L (98-107); Glucose 88 mg/dL (74-106); Potassium 3.9 mmol/L (3.5-5.1); Sodium 144 mmol/L (136-145)
[2021-10-19] MEDS: Divalproex Sodium 500 MG TAB.ER.24H PO (07:48)
[2021-10-19] MEDS: Lisinopril 10 MG TAB 30 MG PO (07:48)
[2021-10-19] MEDS: hydroCHLOROthiazide 25 MG TAB 12.5 MG PO (07:48)
[2021-10-19] MEDS: levETIRAcetam 500 MG TAB 1000 MG PO (07:49)
--- NOTE | 2021-10-19 09:02 | INITIAL_ITS ---
- If Service Date Differs Date of service: 10/19/21 Time of Service: 09:02 Care Management Initial Assess REASON FOR HOSPITALIZATION:: seizures PAST MEDICAL HISTORY/PAST SURGICAL HISTORY:: All Active Problems (Updated 10/18/21 @ 21:53 by Mateusz Young MD). Status epilepticus (Acute). Intraparenchymal hemorrhage of brain (Acute). Breakthrough seizure (Acute). Medical History . Hemorrhagic stroke. Hypertension. Prediabetes. Tobacco abuse PREVIOUS FUNCTIONAL STATUS/SOCIAL/FAMILY SUPPORTS:: Mateusz lives in [place], [place] with his . CURRENT FUNCTIONAL STATUS:: Mateusz discharged before was able to meet with him. Per staff, he was argumentative and impatient and refused care and testing. ADVANCE DIRECTIVES:: none on file Has patient been provided with info about the portal/API?: Yes Did the patient sign up for the portal?: No CODE STATUS:: Full Code INSURANCE COVERAGE / FINANCIAL ISSUES:: RONDA BS PRIMARY CARE PHYSICIAN:: Michelle Lozada POTENTIAL DISCHARGE NEEDS:: Follow up [facility] PCP and plan of care PATIENT/FAMILY EDUCATION NEEDS:: Review of discharge instructions, limitationms, follow up plan, activity, Ask Me Three TRANSPORTATION:: likely via private vehicle with family vs EMS if transferred to tertiary care PLAN:: Mateusz will be discharged home with no new services. He will follow up with his community providers and plan of care and transport with his .
--- NOTE | 2021-10-19 09:25 | W.PM.PROGNOT ---
Date of Service Date of service: 10/19/21 Time of Service: 09:26 Objective Last Vital Signs Temp 36.6 C 10/19/21 08:10 Pulse 81 10/19/21 08:10 Resp 20 10/19/21 08:10 BP 110/75 10/19/21 08:10 Pulse Ox 94 10/19/21 08:10 Laboratory Results - last 24 hr 10/18/21 10/18/21 10/18/21 17:55 17:55 17:55 WBC 11.16 H RBC 4.88 Hgb 15.7 Hct 46.9 MCV 96.1 H MCH 32.2 MCHC 33.5 RDW 12.2 Plt Count 245 MPV 10.5 Immature Gran % 0.3 Neutrophils % 41.8 Lymphocytes % 43.4 Monocytes % 10.1 Eosinophils % 3.9 Basophils % 0.5 Nucleated RBC % 0 Absolute Neutrophils 4.66 Absolute Lymphocytes 4.84 H Absolute Monocytes 1.13 H Absolute Eosinophils 0.44 Absolute Basophils 0.06 Sodium 140 Potassium 3.5 Chloride 102 Carbon Dioxide 28.1 Anion Gap 9.9 BUN 13 Creatinine 1.1 Estimated GFR/1.73 m2 >= 60.00 Glucose 164 H Calcium 8.6 Magnesium 2.2 Total Bilirubin 0.3 AST 14 L ALT 20 Alkaline Phosphatase 71 Creatine Kinase 140 Troponin I < 50 Total Protein 7.6 Albumin 3.8 Valproic Acid Ethyl Alcohol COVID-19 Source SARS-CoV-2 (PCR) 10/18/21 10/18/21 10/18/21 17:55 17:55 20:00 WBC RBC Hgb Hct MCV MCH MCHC RDW Plt Count MPV Immature Gran % Neutrophils % Lymphocytes % Monocytes % Eosinophils % Basophils % Nucleated RBC % Absolute Neutrophils Absolute Lymphocytes Absolute Monocytes Absolute Eosinophils Absolute Basophils Sodium Potassium Chloride Carbon Dioxide Anion Gap BUN Creatinine Estimated GFR/1.73 m2 Glucose Calcium Magnesium Total Bilirubin AST ALT Alkaline Phosphatase Creatine Kinase Troponin I Total Protein Albumin Valproic Acid 44.3 Ethyl Alcohol < 3.0 COVID-19 Source Nasopharynx SARS-CoV-2 (PCR) Negative 10/18/21 10/19/21 10/19/21 23:20 06:38 06:38 WBC 9.36 RBC 4.66 Hgb 14.8 Hct 44.3 MCV 95.1 H MCH 31.8 MCHC 33.4 RDW 12.3 Plt Count 218 MPV 10.8 Immature Gran % 0.4 Neutrophils % 59.7 Lymphocytes % 28.4 Monocytes % 8.4 Eosinophils % 2.6 Basophils % 0.5 Nucleated RBC % 0 Absolute Neutrophils 5.58 Absolute Lymphocytes 2.66 Absolute Monocytes 0.79 Absolute Eosinophils 0.24 Absolute Basophils 0.05 Sodium 144 Potassium 3.9 Chloride 106 Carbon Dioxide 28.2 Anion Gap 9.8 BUN 12 Creatinine 1.0 Estimated GFR/1.73 m2 >= 60.00 Glucose 88 D Calcium 8.2 L Magnesium 2.0 Total Bilirubin AST ALT Alkaline Phosphatase Creatine Kinase Troponin I < 50 Total Protein Albumin Valproic Acid Ethyl Alcohol COVID-19 Source SARS-CoV-2 (PCR)
--- NOTE | 2021-10-19 10:04 | NUR.NOTE ---
Nayeli () [phone] Sami (Daughter) [phone] Nursing Note:
--- NOTE | 2021-10-19 10:50 | DSE_ITS ---
Date of service: 10/19/21 Time of Service: 10:50 DS: Diagnosis Discharge Diagnosis (1) Status epilepticus: Status: Resolved Discharge Plan Disposition Patient Disposition: HOME Condition: Improving Discharge Details Reason For Visit: Seizure Disorder Admit Date/Time: 10/18/21 21:30 Admit Provider: Mateusz Young Attending Provider: Mateusz Young Primary Care Provider: Michelle Lozada Hospital Course Hospital Course: 51-year-old male with a history of intracranial hemorrhage from 2 years ago who later developed seizure disorder and has been placed on Depakote. He has had 2 prior seizures associated with speech difficulty last seizure was about 6 months ago. He presented to the emergency department on 10/18/2021 developed acute aphasia while in the car with his . His reported that he has not missed any doses of his Depakote. His indicated the patient was acting normal earlier in the day and had no complaints of headaches and no noticeable neurologic deficits. His indicated this is how he presented when he had his cerebral bleed. CT of his head was performed last night per stroke protocol. He had no evidence of an acute intracranial process. Specifically there was no hemorrhage mass-effect or midline shift. Emergency department personnel at [facility] spoke with multiple neurologist last night including her own neurologist Dr. Mir who recommended loading dose of 2 g of Keppra. The ED staff then spoke with Dr. Mirza from [facility] who recommends 60 mg/kg Keppra dosing and recommended to give another 1.5 g of Keppra in addition to the loading dose of 3 g. [facility] had no bed capacity at this time. ED personnel [facility] then spoke with Dr. Knott who is neurologist from [facility] who advised that the patient continue to be followed by [facility] and recommended keeping the patient on his Depakote and Keppra currently. [facility] had no bed capacity either. Dr. Knott did recommend trying to give the evening Depakote as Depacon one-to-one conversion with giving him 750 mg last night and another 1000 mg last night if needed. Recommend he can return home once he returned to his baseline condition. Patient was admitted to the intensive care unit after he was given 8 mg of Ativan in the emergency department along with a loading dose of Keppra. Because the patient pulled out his IV after he was admitted to the intensive care unit he only received a total loading dose 3 g of Keppra. This morning he is alert and oriented although unco operative in any examination or testing. Because Dr. Mir was off with that illness today I spoke with her on the phone regarding adjustment of his Depakote dosing. She advised increasing his Depakote to 750 mg the morning and 1000 mg at night. I conveyed this information to his and daughter and recommend that he have close follow-up with his neurologist at [facility]. I am also recommend that he have a follow-up Depakote level later this week. On the morning of discharge patient was demanding to be released in the hospital. He was refusing answering questions and refusing his IVs and any monitoring. Dr. Mir's office sick today but we did offer a follow-up appointment with her to the patient. Patient requested that he continue with his neurologist at [facility]. His next scheduled appointment is January 04, 2022. We called the neurology clinic to try to move up his appointment to be within the next 2 to 4 weeks. Home Meds and New Rx's Prescriptions: Continued lisinopril 30 mg tablet 30 mg PO DAILY 0RF hydrochlorothiazide 25 mg tablet 12.5 mg PO DAILY 0RF Label Comments: TAKE ONE TABLET BY MOUTH EVERY DAY DOSE INCREASE Changed divalproex 250 mg tablet,delayed release (DR/EC) 250 mg PO DAILY AM Qty: 30 1RF Label Comments: TAKE ONE TABLET BY MOUTH EVERY NIGHT IN ADDITION TO THE 500MG FOR A TOTAL OF 750MG Rx Instructions: take one 250 mg tablet once a day along w/ one 500 mg tablet divalproex 500 mg tablet,delayed release (DR/EC) See Rx Instructions .ROUTE .COMPLEX Qty: 90 1RF Label Comments: TAKE ONE TABLET BY MOUTH TWICE A DAY Rx Instructions: 500 mg take one tablet by mouth daily along w/ one 250 mg tablet daily; take two tablets by mouth nightly Discharge Instructions Instructions: Epilepsy (DC) Additional Instructions: Your depakote (valproic acid) antiseizure medication has been increased to 750 mg daily (one 250 mg tablet and one 500 mg tablet) as well as 1000 mg nightly (two 500 mg tablets nightly). You should follow up with your neurology clinic at [facility]; however, if you choose to do so, you may follow locally w/ Dr. Ranjana Mir at [facility]. No driving, tub baths, swimming, climbing up ladders or heights nor any activity that would potentially lead to serious injuries in the event of another seizure Get a repeat Depakote level in 3 days. Respiratory care will call you with an appointment to get a follow up EEG Referrals: [facility] [Outside] (follow up with the neurology clinic at [facility] in the next 2 to 4 weeks) Michelle Lozada [Primary Care Provider] - Activity:: see additional instruct Equipment/Supplies:: No Equipment Needed Diet:: Normal Diet Discharge Orders Discharge Orders: Discharge Order (Routine); Ordered 10/19/21 Ordered By: Bennett Santos Other Ambulatory Orders: Valproic Acid (Routine) Timeframe: 3 Days Facility: [facility] - Location: Laboratory Outpatient Ordered By: Bennett Santos Discharge Data Discharge Date/Time-TO BE ENTERED AT DEPARTURE: 10/19/21 11:11 Discharge Comment: discharged to home with and daughter DS: Summary Time Spent with Patient providing and/or coordinating discharge services: Less than 30 minutes Specific discharge activities: prescribing medications; discussing treatment and follow up plans w/ his and daughter Status at Discharge Functional status at discharge: independent ambulation Overall status at discharge: patient is progressing back to baseline Mental Status: mental status grossly normal Speech and Movement: speech and movement normal Mood: irritable mood Affect: irritable affect Exam Narrative Exam Narrative: Patient refused any exam. He was alert, very agitated and angry and demanding to be discharged home. He refused any questions or examination. Psych Mental Status: mental status grossly normal Speech and Movement: speech and movement normal Mood: irritable mood Affect: irritable affect DS: Data Vitals/I&O Vitals and I&O: Vital Signs Temperature 36.6 C 10/19/21 08:10 Temperature Source Temporal Artery Scan 10/19/21 08:10 Pulse 81 10/19/21 08:10 Pulse 79 10/19/21 08:02 Respiratory Rate 20 10/19/21 08:10 Respiratory Effort Non-Labored 10/19/21 08:10 Respiratory Depth Normal 10/19/21 08:10 Respiratory Pattern Normal 10/19/21 08:10 Blood Pressure 110/75 10/19/21 08:10 Blood Pressure Mean 86 10/19/21 08:10 Blood Pressure Position Supine 10/19/21 08:10 Pulse Oximetry 94 10/19/21 08:10 Oxygen Delivery Method Room Air 10/19/21 08:10 Oxygen Flow Rate 0 10/19/21 08:10 Pain Level 0 10/19/21 08:10 Intake & Output 10/18/21 10/18/21 10/19/21 11:59 23:59 11:59 Intake Total 1146.667 / 1146.667 90 / 90 Output Total 350 / 350 Balance 1146.667 / 1146.667 -260 / -260 Weight 116.1 kg Intake: IV 1146.667 / 1146.667 Oral 90 / 90 Output: Urine 350 / 350 Other: Urine Color Dark Shirley Urine Appearance Clear Urine Odor None Comment has not voided HNV since admission Voiding Methods Urinal Data Completed and Pending Labs on day of discharge: Labs from last 24 hours 10/19/21 10/19/21 10/18/21 06:38 06:38 23:20 WBC 9.36 RBC 4.66 Hgb 14.8 Hct 44.3 MCV 95.1 H MCH 31.8 MCHC 33.4 RDW 12.3 Plt Count 218 MPV 10.8 Immature Gran % 0.4 Neutrophils % 59.7 Lymphocytes % 28.4 Monocytes % 8.4 Eosinophils % 2.6 Basophils % 0.5 Nucleated RBC % 0 Absolute Neutrophils 5.58 Absolute Lymphocytes 2.66 Absolute Monocytes 0.79 Absolute Eosinophils 0.24 Absolute Basophils 0.05 Sodium 144 Potassium 3.9 Chloride 106 Carbon Dioxide 28.2 Anion Gap 9.8 BUN 12 Creatinine 1.0 Estimated GFR/1.73 m2 >= 60.00 Glucose 88 D Calcium 8.2 L Magnesium 2.0 Total Bilirubin AST ALT Alkaline Phosphatase Creatine Kinase Troponin I < 50 Total Protein Albumin Valproic Acid Ethyl Alcohol COVID-19 Source SARS-CoV-2 (PCR) 10/18/21 10/18/21 10/18/21 20:00 17:55 17:55 WBC RBC Hgb Hct MCV MCH MCHC RDW Plt Count MPV Immature Gran % Neutrophils % Lymphocytes % Monocytes % Eosinophils % Basophils % Nucleated RBC % Absolute Neutrophils Absolute Lymphocytes Absolute Monocytes Absolute Eosinophils Absolute Basophils Sodium Potassium Chloride Carbon Dioxide Anion Gap BUN Creatinine Estimated GFR/1.73 m2 Glucose Calcium Magnesium Total Bilirubin AST ALT Alkaline Phosphatase Creatine Kinase Troponin I Total Protein Albumin Valproic Acid 44.3 Ethyl Alcohol < 3.0 COVID-19 Source Nasopharynx SARS-CoV-2 (PCR) Negative 10/18/21 10/18/21 10/18/21 17:55 17:55 17:55 WBC 11.16 H RBC 4.88 Hgb 15.7 Hct 46.9 MCV 96.1 H MCH 32.2 MCHC 33.5 RDW 12.2 Plt Count 245 MPV 10.5 Immature Gran % 0.3 Neutrophils % 41.8 Lymphocytes % 43.4 Monocytes % 10.1 Eosinophils % 3.9 Basophils % 0.5 Nucleated RBC % 0 Absolute Neutrophils 4.66 Absolute Lymphocytes 4.84 H Absolute Monocytes 1.13 H Absolute Eosinophils 0.44 Absolute Basophils 0.06 Sodium 140 Potassium 3.5 Chloride 102 Carbon Dioxide 28.1 Anion Gap 9.9 BUN 13 Creatinine 1.1 Estimated GFR/1.73 m2 >= 60.00 Glucose 164 H Calcium 8.6 Magnesium 2.2 Total Bilirubin 0.3 AST 14 L ALT 20 Alkaline Phosphatase 71 Creatine Kinase 140 Troponin I < 50 Total Protein 7.6 Albumin 3.8 Valproic Acid Ethyl Alcohol COVID-19 Source SARS-CoV-2 (PCR) [facility] All Active Problems Encounter for medication monitoring (Acute) Intraparenchymal hemorrhage of brain (Acute) Breakthrough seizure (Acute) Medical History Hemorrhagic stroke Hypertension Prediabetes Tobacco abuse Social History Smoking/Tobacco Use Status: Current every day Tobacco Type: cigarettes and smokeless tobacco Smoking risk assessment performed?: Yes Alcohol Intake: never Drug use: Never Substance use type: does not use Do you feel safe at home: Yes Do you feel safe in your relationship?: Yes
--- NOTE | 2021-10-19 11:10 | W.PULMCC ---
General Date of Service Date of service: 10/19/21 Time of Service: 08:15 Reason for Admission to ICU: Seizures Recommendations I&O: Intake & Output 10/16/21 10/17/21 10/18/21 10/19/21 23:59 23:59 23:59 23:59 Intake Total 1146.667 / 1146.667 90 / 90 Output Total 350 / 350 Balance 1146.667 / 1146.667 -260 / -260 Weight 116.1 kg Code Status: Resuscitation Status Full Code Subjective Critical and life-threatening events over the past 24 hours: This is a 51 yo man with a known history of seizures who presented to the Ed with aphasia. His past seizures have also been associated with speech difficulty. He has a history of intracranial hemorrhage 2 years ago with the seizures developing after this. He is on Depakote at home for seizure control. Per his he was compliant with the depakote. In the ED he was given 4.5g of Keppra as a load as well as 8mg of Ativan. [facility] and [facility] were unable to take the patient but it does not seem as though he was in a true status state or not. Most Recent VS/Results Last Vital Signs Temp 36.6 C 10/19/21 08:10 Pulse 81 10/19/21 08:10 Resp 20 10/19/21 08:10 BP 110/75 10/19/21 08:10 Pulse Ox 94 10/19/21 08:10 Laboratory Results - last 24 hr 10/18/21 10/18/21 10/18/21 17:55 17:55 17:55 WBC 11.16 H RBC 4.88 Hgb 15.7 Hct 46.9 MCV 96.1 H MCH 32.2 MCHC 33.5 RDW 12.2 Plt Count 245 MPV 10.5 Immature Gran % 0.3 Neutrophils % 41.8 Lymphocytes % 43.4 Monocytes % 10.1 Eosinophils % 3.9 Basophils % 0.5 Nucleated RBC % 0 Absolute Neutrophils 4.66 Absolute Lymphocytes 4.84 H Absolute Monocytes 1.13 H Absolute Eosinophils 0.44 Absolute Basophils 0.06 Sodium 140 Potassium 3.5 Chloride 102 Carbon Dioxide 28.1 Anion Gap 9.9 BUN 13 Creatinine 1.1 Estimated GFR/1.73 m2 >= 60.00 Glucose 164 H Calcium 8.6 Magnesium 2.2 Total Bilirubin 0.3 AST 14 L ALT 20 Alkaline Phosphatase 71 Creatine Kinase 140 Troponin I < 50 Total Protein 7.6 Albumin 3.8 Valproic Acid Ethyl Alcohol COVID-19 Source SARS-CoV-2 (PCR) 10/18/21 10/18/21 10/18/21 17:55 17:55 20:00 WBC RBC Hgb Hct MCV MCH MCHC RDW Plt Count MPV Immature Gran % Neutrophils % Lymphocytes % Monocytes % Eosinophils % Basophils % Nucleated RBC % Absolute Neutrophils Absolute Lymphocytes Absolute Monocytes Absolute Eosinophils Absolute Basophils Sodium Potassium Chloride Carbon Dioxide Anion Gap BUN Creatinine Estimated GFR/1.73 m2 Glucose Calcium Magnesium Total Bilirubin AST ALT Alkaline Phosphatase Creatine Kinase Troponin I Total Protein Albumin Valproic Acid 44.3 Ethyl Alcohol < 3.0 COVID-19 Source Nasopharynx SARS-CoV-2 (PCR) Negative 10/18/21 10/19/21 10/19/21 23:20 06:38 06:38 WBC 9.36 RBC 4.66 Hgb 14.8 Hct 44.3 MCV 95.1 H MCH 31.8 MCHC 33.4 RDW 12.3 Plt Count 218 MPV 10.8 Immature Gran % 0.4 Neutrophils % 59.7 Lymphocytes % 28.4 Monocytes % 8.4 Eosinophils % 2.6 Basophils % 0.5 Nucleated RBC % 0 Absolute Neutrophils 5.58 Absolute Lymphocytes 2.66 Absolute Monocytes 0.79 Absolute Eosinophils 0.24 Absolute Basophils 0.05 Sodium 144 Potassium 3.9 Chloride 106 Carbon Dioxide 28.2 Anion Gap 9.8 BUN 12 Creatinine 1.0 Estimated GFR/1.73 m2 >= 60.00 Glucose 88 D Calcium 8.2 L Magnesium 2.0 Total Bilirubin AST ALT Alkaline Phosphatase Creatine Kinase Troponin I < 50 Total Protein Albumin Valproic Acid Ethyl Alcohol COVID-19 Source SARS-CoV-2 (PCR)
--- NOTE | 2021-10-19 15:29 | PDOC.CMDIS ---
- If Service Date Differs Date of service: 10/19/21 Time of Service: 15:29 LACE Index Scoring Tool - Questions: Length of Stay (in days): 1 Acuity (Admit via E.D.?): Yes Comorbidities: Cerebrovascular Disease E.D. Visits: 2 - Answers: Total Score: 7 Risk of Readmission: Low Risk Care Management Discharge Reason for Hospitalization: seizures Discharge Plan: Mateusz will be discharged home with no new services. He will follow up with his community providers and plan of care and transport with his . Patient/Family Education Needs: Review of discharge instructions, limitationms, follow up plan, activity, Ask Me Three
== END 2021-10-19 11:11 | disposition home or self-care (01) ==
LOC: ER 21:50 → ICU 22:18
PROVIDERS: Admitting Provider Family Medicine; Emergency Provider Physician Assistant; PCP Nurse Practitioner Family; Visit Provider Family Medicine
DX: G40.901 Epilepsy, unspecified, not intractable, with status epilepticus (principal); I10 Essential (primary) hypertension; R73.03 Prediabetes; F17.210 Nicotine dependence, cigarettes, uncomplicated; Z20.822 Contact with and (suspected) exposure to COVID-19
CPT/HCPCS: 36415; 36416; 80048; 80053; 82550; 82962; 87635; 93005; 96361; 96365; 96366; 96375; 96376; 99285; 70450; 71045; 80164; 80320; 83735; 84484; 85025; 93010; 99219; G0378; J1953; J2060; J3490

== ENCOUNTER 2021-10-25 10:03 | Outpatient (REF) | payer BC, SELFPAY ==
[2021-10-25 13:04] LABS: VALPROIC ACID 95.2 ug/mL
== END 2021-10-25 10:04 | disposition home or self-care (01) ==
LOC: NCHCN 10:03
PROVIDERS: PCP Nurse Practitioner Family; Visit Provider Nurse Practitioner Family
DX: R56.9 Unspecified convulsions (principal)
CPT/HCPCS: 80164

== ENCOUNTER 2021-10-28 04:33 | Outpatient (CLI) | payer BC, SELFPAY ==
--- NOTE | 2021-10-29 10:57 | PDOC.EEG_ITS ---
Neurology EEG EEG: [facility] Department of Neurology EEG REPORT Date of Recordin10/28/21 Interpreting Physician: Dr. Ranjana Mir PCP/Referring Provider: Michelle Lozada NP Reason for study: Mr. Maddox is a 51 year-old man with stroke and epilepsy, with recent episode of status epilepticus. Current Medications: Home Medications Medication Instructions Recorded Confirmed Type hydrochlorothiazide 25 mg tablet 12.5 mg PO DAILY 07/26/20 10/18/21 History lisinopril 30 mg tablet 30 mg PO DAILY 07/26/20 10/18/21 History divalproex 250 mg tablet,delayed 250 mg PO DAILY AM #30 tab 10/19/21 Rx release divalproex 500 mg tablet,delayed See Rx Instructions .ROUTE 10/19/21 Rx release .COMPLEX #90 tab METHODS: A 21 channel digitized electroencephalogram was performed in the [facility] Clinical Neurophysiology Laboratory. The 10/20 international system of electrode placement was used and bipolar and referential electrode montages were recorded. In addition to EEG the patient was monitored for EKG and lateral/vertical eye movements. Activation procedures of photic stimulation and hyperventilation were performed if applicable. Video was used during activation procedures and during events where applicable. The duration of the recording was 30 minutes. DESCRIPTION OF EEG: The patient was noted to be awake and drowsy during the recording. During maximal wakefulness a 10-Hz posterior background rhythm was present which was well-modulated, symmetrical, reactive to eye opening, and of moderate voltage. With eye opening the background activity changed to a low voltage mixture of alpha, beta, and occasional theta range frequencies. Faster frequencies were present in the bilateral anterior head regions. There was a normal anterior- posterior voltage gradient. During drowsiness, there was attenuation of the posterior dominant background rhythm and vertex waves. Stage II sleep was present with symmetrical sleep spindles, K-complexes, and vertex waves. Activating Procedures: Photic stimulation was performed which produced no posterior driving response. Hyperventilation was performed with moderate effort and produced no physiological slowing of the background. EKG: EKG revealed normal sinus rhythm. INTERPRETATION: This EEG is normal during the awake and sleep states as well as during photic stimulation and hyperventilation. PRIOR EEG: none CLINICAL CORRELATION: No focal regions of cerebral dysfunction or epileptiform activity was present. Epilepsy remains a clinical diagnosis and a normal EEG does not rule out epilepsy. Clinical correlation is advised. Ranjana Mir MD
== END 2021-10-28 04:34 | disposition home or self-care (01) ==
LOC: RT 04:34
PROVIDERS: PCP Nurse Practitioner Family; Visit Provider Nurse Practitioner Family
DX: G40.909 Epilepsy, unspecified, not intractable, without status epilepticus (principal)
CPT/HCPCS: 95819

== ENCOUNTER 2022-11-10 14:59 | Outpatient (REF) | payer BC, SELFPAY ==
[2022-11-10 19:08] LABS: ALT 44 U/L (16-63); AST 49 U/L (15-37); Albumin 3.7 g/dL (3.4-5.0); Alkaline Phosphatase 59 U/L (46-116); Anion Gap 6.9 mmol/L (3-11); BUN 20 mg/dL (7-18); Bilirubin, Total 0.5 mg/dL (0.2-1.0); CO2 30.1 mmol/L (21.0-32.0); CREATININE 1.1 mg/dL (0.70-1.30); Calcium 9.2 mg/dL (8.5-10.1); Calculated LDL 100 mg/dL (<100); Chloride 103 mmol/L (98-107); Cholesterol 182 mg/dL (<200); Estimated GFR 81.78 (mL/min/1.73m2); Glucose 96 mg/dL (74-106); HDL Cholesterol 31 mg/dL (40-60); Potassium 4.6 mmol/L (3.5-5.1); Sodium 140 mmol/L (136-145); Total Protein 7.5 g/dL (6.4-8.2); Triglyceride 257 mg/dL (<150)
[2022-11-10 19:10] LABS: Hemoglobin A1C 5.8 % (<5.7)
== END 2022-11-10 15:00 | disposition home or self-care (01) ==
LOC: NCHCN 14:59
PROVIDERS: PCP Nurse Practitioner Family; Visit Provider Nurse Practitioner Family
DX: Z00.00 Encounter for general adult medical examination without abnormal findings (principal); R73.03 Prediabetes; I10 Essential (primary) hypertension
CPT/HCPCS: 80053; 80061; 83036

== ENCOUNTER 2022-12-01 09:00 | Outpatient (REF) | payer BC, SELFPAY ==
[2022-12-01 16:10] LABS: VALPROIC ACID 74.6 ug/mL
== END 2022-12-01 09:01 | disposition home or self-care (01) ==
LOC: NCHCN 09:00
PROVIDERS: PCP Nurse Practitioner Family; Visit Provider Nurse Practitioner Family
DX: R56.9 Unspecified convulsions (principal); Z51.81 Encounter for therapeutic drug level monitoring; Z79.899 Other long term (current) drug therapy
CPT/HCPCS: 80164

== ENCOUNTER 2023-08-10 19:52 | Outpatient (REF) | payer BC, SELFPAY ==
[2023-08-10 19:47] LABS: Abs Immature Grans 0.01 10^3/uL (0.0-0.06); Absolute Basophil Count 0.05 10^3/uL (0.0-0.2); Absolute Eosinophil Count 0.13 10^3/uL (0.0-0.7); Absolute Lymphocyte Count 3.17 10^3/uL (1.2-3.4); Absolute Monocyte Count 0.74 10^3/uL (0.1-0.8); Absolute Neutrophil Count 3.02 10^3/uL (1.2-6.7); Basophils % 0.7; Eosinophils % 1.8; HCT 44.8 % (40.0-50.0); HGB 15.4 g/dL (13.5-17.5); Immature Grans % 0.1; Lymphocytes % 44.5; MCH 32.9 pg (27.0-33.0); MCHC 34.4 % (32.0-36.0); MCV 96 fL (80-95); MPV 11.4 fL (8.0-11.0); Monocytes % 10.4; Neutrophils % 42.5; Platelet Count 221 10^3/uL (130-400); RBC 4.68 10^6/uL (4.36-5.78); RDW 11.9 % (11.8-14.1); RDW-SD 41.8 fL; WBC 7.12 10^3/uL (4.4-10.8)
[2023-08-10 19:51] LABS: ALT 30 U/L (16-63); AST 40 U/L (15-37); Albumin 3.6 g/dL (3.4-5.0); Alkaline Phosphatase 84 U/L (46-116); Anion Gap 6.2 mmol/L (3-11); BUN 16 mg/dL (7-18); Bilirubin, Total 0.4 mg/dL (0.2-1.0); CO2 30.8 mmol/L (21.0-32.0); CREATININE 1.1 mg/dL (0.70-1.30); Calcium 8.9 mg/dL (8.5-10.1); Chloride 104 mmol/L (98-107); Estimated GFR 81.78 (mL/min/1.73m2); Glucose 100 mg/dL (74-106); Potassium 4.7 mmol/L (3.5-5.1); Sodium 141 mmol/L (136-145); Total Protein 7.3 g/dL (6.4-8.2)
[2023-08-10 20:24] LABS: VALPROIC ACID 47.7 ug/mL
== END 2023-08-10 19:53 | disposition home or self-care (01) ==
LOC: NCHCN 19:52
PROVIDERS: PCP Nurse Practitioner Family; Visit Provider Nurse Practitioner Family
DX: I10 Essential (primary) hypertension (principal); R73.03 Prediabetes; R56.9 Unspecified convulsions; Z51.81 Encounter for therapeutic drug level monitoring; Z79.899 Other long term (current) drug therapy
CPT/HCPCS: 80053; 80164; 83036; 85025

== ENCOUNTER 2023-08-15 10:50 | Emergency (ER) | payer BC, SELFPAY ==
[2023-08-15 10:53] VITALS: BP 134/100; PULSE 76; RESP 18; TEMP 37.1; O2SAT 97
--- NOTE | 2023-08-15 11:41 | W.ED.GENAD ---
Discharge Plan Disposition Patient Disposition: Home Condition: Good Discharge Details Clinical Impression: Effusion of knee joint, left, Knee MCL sprain, Arthritis of knee Primary Care Provider: Michelle Lozada ED Provider: Janelle Tamayo Home Meds and New Rx's Prescriptions: Continued lisinopril 30 mg tablet 30 mg PO DAILY hydrochlorothiazide 25 mg tablet 12.5 mg PO DAILY Patient Comments: TAKE ONE TABLET BY MOUTH EVERY DAY DOSE INCREASE divalproex 250 mg tablet,delayed release (DR/EC) 250 mg PO DAILY AM Qty: 30 1RF Patient Comments: TAKE ONE TABLET BY MOUTH EVERY NIGHT IN ADDITION TO THE 500MG FOR A TOTAL OF 750MG Rx Instructions: take one 250 mg tablet once a day along w/ one 500 mg tablet divalproex 500 mg tablet,delayed release (DR/EC) See Rx Instructions .ROUTE .COMPLEX Qty: 90 1RF Patient Comments: TAKE ONE TABLET BY MOUTH TWICE A DAY Rx Instructions: 500 mg take one tablet by mouth daily along w/ one 250 mg tablet daily; take two tablets by mouth nightly Discharge Instructions Instructions: Knee Sprain (ED) Additional Instructions: As we discussed, your exam is concerning for an MCL strain which is the ligament on the inside of your knee. This should heal naturally with supportive bracing which you are given here today. I am also concerned about the swelling in your knee and your ACL. Please encourage rest, ice, elevation. You may use Tylenol and/or ibuprofen as needed for discomfort. Please take as directed on the packaging. We have also referred you to orthopedics. Please call to schedule follow-up appointment, number listed below. If you develop any new or worsening symptoms please seek care urgently once again. Otherwise, please try to avoid activities that cause increased pain or undue stress on the knee. Stand Alone Forms: Work Release Referrals: Thor Parks MD [ [facility] STAFF PHYSICIAN] - Medical Decision Making Patient is a pleasant 52-year-old male, companied by his daughter, presenting today with chief complaint of left knee pain. He reports that yesterday he was walking towards his car when he slipped on some ice and felt that his knee twisted. He is not able to describe the movement of the knee. He did not fall on the knee. Denies other injury at time of incident. Patient does have remote history of ACL repair which he believes still had some instability postsurgically. States that he has chronic pain in bilateral hips and knees which she associates with previous injuries. 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 Denies any numbness or tingling. No radiation of pain. States that he immediately noted swelling in the knee. Was able to work for few hours yesterday but has been using a crutch to help with ambulation starting last night and into today. Did take Tylenol and ibuprofen prior to arrival. On exam, patient appears nontoxic. Hemodynamically stable. Exam left lower extremity reveals to be neurovascular intact. He has full range of motion of the ankle, good strength. 2+ distal pulses. Does have a small effusion. No erythema or warmth. Midline incision, well-healed from previous ACL repair. Full extension, flexion is limited to approximate 45 degrees secondary to pain. While he has no laxity with varus or valgus stress testing, he does have pain with varus stress testing over the MCL. This area is also point tender with palpation. No laxity with anterior posterior drawer testing. I find bony abnormality less likely, I do have a high suspicion for arthritis in this patient given his history. Will move forward with x-ray. If no significant abnormality noted at that time, will treat like MCL injury. FINDINGS: Four views. No evidence of fracture. There is evidence of previous ACL surgery. There is a prominent knee joint effusion. There are few small calcified bodies within the fluid-filled suprapatellar bursa. There is [id number] advanced degenerative narrowing of the medial compartment minimal narrowing of the lateral compartment. Moderate degenerative changes in the patellofemoral compartment. No significant osseous lesions. IMPRESSION: There has been prior ACL reconstruction. Prominent joint effusion evident. This may indicate significant internal derangement including graft rupture. Advanced osteoarthritic degenerative changes, most evident in the medial compartment. Discussed with patient. Will fit with hinge brace, will give crutches for support. Advised he may advance to weight [id number] but should have brace on. Will refer to ortho for MCL strain, advanced arthritis and eval of his ACL. discussed with patient and family who are in agreement. Return precautions discussed. Work note given. All of his questions and concerns were addressed, he is in agreement with this plan. HPI General Date/Time Provider Initiated Documentation: 08/15/23 11:16. Limitations to Documentation: no limitations. Information obtained by: patient, family (daughter) and RN notes reviewed. History of Present Illness 52 year old M presents to the emergency department with the chief complaint of left knee pain, described as moderate, with intensity rated at 7. Quality is described as stabbing and aching, and is localized to the left and lower extremity. Patient reports no radiation. Patient started experiencing this day(s) (1) and it has been constant. Immobilization improves symptom(s), Movement worsens symptoms . Patient notes no other symptoms.. Patient did receive the following treatments prior to arrival, NSAID Related Data Home Medications Medication Instructions Recorded Confirmed hydrochlorothiazide 25 mg tablet 12.5 mg PO DAILY 07/26/20 08/15/23 lisinopril 30 mg tablet 30 mg PO DAILY 07/26/20 08/15/23 divalproex 250 mg tablet,delayed 250 mg PO DAILY AM #30 tabs 10/19/21 08/15/23 release divalproex 500 mg tablet,delayed See Rx Instructions .Route 10/19/21 08/15/23 release .COMPLEX #90 tabs Previous Rx's Medication Instructions Recorded divalproex 250 mg tablet,delayed 250 mg PO DAILY AM #30 tabs 10/19/21 release divalproex 500 mg tablet,delayed See Rx Instructions .Route 10/19/21 release .COMPLEX #90 tabs Allergies Allergy/AdvReac Type Severity Reaction Status Date / Time No Known Allergies Allergy Unverified 10/18/21 18:26 General Stated Complaint: Orthopedic LIVAN: 4 Review of Systems Constitutional Constitutional: Reports as per HPI, Denies chills, Denies fever(s) and Denies weakness Cardiovascular Cardiovascular: Reports as per HPI Respiratory Respiratory: Reports as per HPI and Denies cough Musculoskeletal Musculoskeletal: Reports as per HPI and Denies tingling Integumentary/Breasts Skin/Breast: Reports as per HPI, Denies rash and Denies wounds Neurologic Neurologic: Reports as per HPI, Denies tingling, Denies paresthesias and Denies weakness PFSH All Active Problems (Updated 08/15/23 @ 12:45 by CLARITZA Garvey) Arthritis of knee (Acute) Knee MCL sprain (Acute) Effusion of knee joint, left (Acute) Encounter for medication monitoring (Acute) Intraparenchymal hemorrhage of brain (Acute) Breakthrough seizure (Acute) Medical History Hemorrhagic stroke Hypertension Prediabetes Tobacco abuse Social History Smoking/Tobacco Use Status: Current every day Tobacco Type: cigarettes and smokeless tobacco Smoking risk assessment performed?: Yes Alcohol Intake: never Drug use: Never Substance use type: does not use Do you feel safe at home: Yes Do you feel safe in your relationship?: Yes Exam Const General: cooperative, healthy appearing, comfortable, no acute distress, well developed and well groomed Nutritional Appearance: well nourished and overweight Orientation: alert and awake Resp Effort & Inspection: normal respiratory effort, able to speak in complete sentences and no respiratory distress Cardio Rate: regular rate Rhythm: regular rhythm Skin General skin exam: no rashes or lesions noted Lesions: no lesions Rashes: no rashes Trauma: no lacerations or abrasions Neuro General: patient alert and patient awake Cognition: normal cognition Motor: muscle tone normal throughout Sensory Exam: no sensory deficits noted Extrem Knee images: 1. Areas of maximal pain. Pain with valgus stress testing. 2+ distal pulses, sesnation intact. Full ROM and strength in ankle. No calf pain. No laxity with anterior/posterior drawer testing. Small effusion, no erythenma or warmth. No pain in calf. Joint line tenderness along medial side. Course Vital Signs Vital signs: Vital Signs Temperature 37.1 C 08/15/23 10:53 Pulse 76 08/15/23 10:53 Respiratory Rate 18 08/15/23 10:53 Blood Pressure 134/100 H 08/15/23 10:53 Pulse Oximetry 97 08/15/23 10:53 Temperature 37.1 C 08/15/23 10:53 Temperature Source Skin 08/15/23 10:53 Pulse 76 08/15/23 10:53 Respiratory Rate 18 08/15/23 10:53 Blood Pressure 134/100 H 08/15/23 10:53 Blood Pressure Position Sitting 08/15/23 10:53 Pulse Oximetry 97 08/15/23 10:53 Oxygen Delivery Method Room Air 08/15/23 10:53 Oxygen Flow Rate 0 08/15/23 10:53 Pain Level 7 08/15/23 10:53 Comment has taken tylenol and ibuprofen took BP medication this morning but did not take it last night seen by pcp last week and was told numbers were perfect 08/15/23 10:53
--- NOTE | 2023-08-15 12:15 | DI.RAD_ITS ---
Exam(s) XR KNEE LT 4V AP,LAT,EARL,PAT EXAM: XR KNEE LT 4V AP,LAT,EARL,PAT CLINICAL HISTORY: twisting injury, medial pain. TECHNIQUE: 2D digital imaging was performed. COMPARISON: No exams were available for comparison FINDINGS: Four views. No evidence of fracture. There is evidence of previous ACL surgery. There is a prominent knee joint effusion. There are few small calcified bodies within the fluid-fill ed suprapatellar bursa. There is [id number] advanced degenerative narrowing of the medial compartment minimal narrowing of the lateral compartment. Moderate degenerative changes in the patellofemoral compartment. No significant osseous lesions. IMPRESSION: There has been prior ACL reconstruction. Prominent joint effusion evident. This may indicate signif icant internal derangement including graft rupture. Advanced osteoarthritic degenerative changes, most evident in the medial compartment. DATA REPOSITORY: RADIATION DOSE DELIVERED:
[2023-08-15 12:58] VITALS: BP 134/100; PULSE 76; RESP 18; O2SAT 97
== END 2023-08-15 12:58 | disposition home or self-care (01) ==
PROVIDERS: Emergency Provider Physician Assistant; PCP Nurse Practitioner Family
DX: M25.562 Pain in left knee (principal); M25.462 Effusion, left knee; S83.412A Sprain of medial collateral ligament of left knee, initial encounter; W00.2XXA Other fall from one level to another due to ice and snow, initial encounter; Y93.01 Activity, walking, marching and hiking
CPT/HCPCS: 99283; 73564

== ENCOUNTER 2023-08-31 14:41 | Outpatient (CLI) | payer BC, SELFPAY ==
--- NOTE | 2023-08-31 13:15 | DI.RAD_ITS ---
Exam(s) XR HIP RT COMPLETE AP PELVIS EXAM: XR HIP RT COMPLETE AP PELVIS CLINICAL HISTORY: hip pain. TECHNIQUE: 2D digital imaging was performed of the right hip. Two images were obtained. AP pelvis a nd lateral right hip views were obtained. COMPARISON: No exams were available for comparison FINDINGS: BONES: No acute fracture is present. No bony destructive lesion is seen. JOINTS: No dislocation present. There are marked degenerative changes seen in the right hip with loss of the superior joint space. There are osteophyte seen about the acetabulum and the femoral head. Subchondral sclerosis and subchondral cysts are also noted. Moderate degenerative changes are seen i n the left hip with joint space narrowing and osteophytes present. SOFT TISSUE: Normal. IMPRESSION: Marked degenerative changes seen in the right hip. DATA REPOSITORY: RADIATION DOSE DELIVERED:
== END 2023-08-31 14:42 | disposition home or self-care (01) ==
LOC: DIORS 14:42
PROVIDERS: PCP Nurse Practitioner Family; Referring Provider Nurse Practitioner Family; Visit Provider Physician Assistant
DX: M16.11 Unilateral primary osteoarthritis, right hip (principal)
CPT/HCPCS: 73502

== ENCOUNTER 2023-11-03 01:23 | Outpatient (CLI) | payer BC, SELFPAY ==
[2023-11-03 09:03] LABS: HCT 47.6 % (40.0-50.0); HGB 16.2 g/dL (13.5-17.5); MCH 32.9 pg (27.0-33.0); MCV 97 fL (80-95); MPV 11.1 fL (8.0-11.0); Platelet Count 213 10^3/uL (130-400); RBC 4.92 10^6/uL (4.36-5.78); RDW 12.3 % (11.8-14.1); RDW-SD 43.8 fL; WBC 7.83 10^3/uL (4.4-10.8)
[2023-11-03 09:16] LABS: Anion Gap 7.6 mmol/L (3-11); BUN 17 mg/dL (7-18); CO2 33.4 mmol/L (21.0-32.0); CREATININE 1.1 mg/dL (0.70-1.30); Calcium 9.7 mg/dL (8.5-10.1); Chloride 104 mmol/L (98-107); Estimated GFR 81.28 (mL/min/1.73m2); Glucose 98 mg/dL (74-106); Sodium 145 mmol/L (136-145)
== END 2023-11-03 01:24 | disposition home or self-care (01) ==
LOC: LBO 01:24
PROVIDERS: PCP Nurse Practitioner Family; Visit Provider Student in an Organized Health Care Education/Training Program
DX: Z01.818 Encounter for other preprocedural examination
CPT/HCPCS: 36415; 80048; 85027

== ENCOUNTER 2023-11-08 06:34 | Day surgery (SDC) | payer BC, SELFPAY ==
[2023-11-08] VITALS (10 sets, daily range): BP systolic 94–116; BP diastolic 61–88; PULSE 60–87; RESP 9–16; TEMP 36.3–36.6; O2SAT 94–97; BMI 34.9
[2023-11-08] MEDS: Lactated Ringers 1,000 ML 80 ML IV (06:39)
[2023-11-08] MEDS: Celecoxib 200 MG CAP PO (06:39)
[2023-11-08] MEDS: Acetaminophen 500 MG TAB 1000 MG PO (06:39)
--- NOTE | 2023-11-08 06:45 | DI.RAD_ITS ---
Exam(s) XR HIP RT IN OR EXAM: XR HIP RT IN OR CLINICAL HISTORY: OSTEOARTHRITIS RT HIP TECHNIQUE: 2D and realtime digital imaging was performed. CONTRAST MATERIAL: Refer to procedure report. COMPARISON: CR XR HIP RT COMPLETE AP PELVIS from 08/31/2023 FINDINGS: Fluoroscopy was provided for Dr. Nelson during the performance of a right total hip replacement. Please refer to the procedure report for complete details. Ka,r=6.6 mGy IMPRESSION: RADIATION DOSE DELIVERED: 0.0 2900.8 0
--- NOTE | 2023-11-08 06:58 | W.ANESPRE ---
General Info Date of Service Date Performed: 11/08/23 Height: 5 ft 11 in Weight: 113.8 kg Body Mass Index (BMI): 34.9 Surgical Procedure: Operation Date: 11/08/23 07:50 Proposed Procedure Side Surgeon p Hip Total Hip Anterior Right José Miguel Nelson MD Meds Allergies and Home Medications Allergies Allergy/AdvReac Type Severity Reaction Status Date / Time No Known Allergies Allergy Verified 11/08/23 06:08 Home Medication Medication Instructions Recorded hydrochlorothiazide 25 mg tablet 12.5 mg PO DAILY 07/26/20 lisinopril 30 mg tablet 30 mg PO DAILY 07/26/20 divalproex 250 mg tablet,delayed 250 mg PO DAILY AM #30 tabs 10/19/21 release divalproex 500 mg tablet,delayed See Rx Instructions .Route 10/19/21 release .COMPLEX #90 tabs Current Visit Medications: Current Medications Generic Name Dose Route Start Last Admin Trade Name Freq PRN Reason Stop Dose Admin Acetaminophen 1,000 mg 11/08/23 06:00 11/08/23 06:39 Acetaminophen 500 Mg Tab PO 11/08/23 23:59 1,000 mg PREOP RANDA Administration Celecoxib 200 mg 11/08/23 06:00 11/08/23 06:39 Celecoxib 200 Mg Cap PO 11/08/23 23:59 200 mg PREOP RANDA Administration Ringer's Solution 1,000 mls @ 80 mls/hr 11/08/23 06:00 11/08/23 06:39 IV 11/08/23 23:59 80 mls/hr INFUSION RANDA Administration Cefazolin Sodium 3,000 mg/ 100 mls @ 200 mls/hr 11/08/23 06:00 Sodium Chloride IVPB 11/08/23 23:59 PREOP RANDA Tranexamic Acid/Sodium Chloride 100 mls @ 600 mls/hr 11/08/23 06:00 IVPB 11/08/23 23:59 PREOP RANDA IV Miscellaneous Supplies 1 each 11/08/23 06:00 Iv Access IV 11/08/23 23:59 DIRECTED RANDA Sodium Chloride 0 ml 11/08/23 06:00 Normal Saline Flush 10 Ml Syr IV 11/08/23 23:59 PRN PRN Sodium Chloride 0 ml 11/08/23 06:00 Normal Saline 10 Ml Vial IJ 11/08/23 23:59 DIRECTED PRN Sterile Water 0 ml 11/08/23 06:00 Water,Injection,Sterile 10 Ml Vial IJ 11/08/23 23:59 DIRECTED PRN PFSH Active Problems Active Problems: Problem Status Onset Code Post-traumatic osteoarthritis of left knee M17.32 Osteoarthritis of right hip M16.11 Encounter for medication monitoring Z51.81 Breakthrough seizure G40.919 Intraparenchymal hemorrhage of brain I61.9 Medical History Medical History (Updated 11/06/23 @ 12:35 by Josh Stallings) Prediabetes Tobacco abuse Hypertension Hemorrhagic stroke 09/2019. F/U with neuro 2022 Surgical History Surgical History S/P ACL reconstruction LEFT Tobacco Smoking/Tobacco Use Status: Current every day Tobacco Type: cigarettes and smokeless tobacco Alcohol Alcohol Intake: current Alcohol intake frequency: holidays/special occasions only Substance Use Substance use: Never Substance use type: does not use Vital Signs and Lab Results Vital Signs Most Recent Vital Signs in EMR: Most Recent Vital Signs Temp Pulse Resp BP Pulse Ox 36.6 C 69 16 111/81 97 11/08/23 06:11 11/08/23 06:11 11/08/23 06:11 11/08/23 06:11 11/08/23 06:11 Lab Results Blood Type / Crossmatch: No Data to Display Complete Blood Count: White Blood Count 7.83 10^3/uL (4.4-10.8) 11/03/23 08:47 Red Blood Count 4.92 10^6/uL (4.36-5.78) 11/03/23 08:47 Hemoglobin 16.2 g/dL (13.5-17.5) 11/03/23 08:47 Hematocrit 47.6 % (40.0-50.0) 11/03/23 08:47 Platelet Count 213 10^3/uL (130-400) 11/03/23 08:47 Complete Metabolic Panel: Sodium 145 mmol/L (136-145) 11/03/23 08:47 Potassium 4.0 mmol/L (3.5-5.1) 11/03/23 08:47 Chloride 104 mmol/L (98-107) 11/03/23 08:47 Carbon Dioxide 33.4 mmol/L (21.0-32.0) H 11/03/23 08:47 BUN 17 mg/dL (7-18) 11/03/23 08:47 Creatinine 1.1 mg/dL (0.70-1.30) 11/03/23 08:47 Est GFR (CKD-EPI 2020) 81.28 (mL/min/1.73m2) 11/03/23 08:47 Calcium 9.7 mg/dL (8.5-10.1) 11/03/23 08:47 Glucose 98 mg/dL (74-106) 11/03/23 08:47 Liver Function Panel: No Data to Display Coagulation Panel: No Data to Display Cardiac Panel: No Data to Display Arterial Blood Gas: No Data to Display Venous Blood Gas: No Data to Display Pancreas Panel: No Data to Display Thyroid Panel: No Data to Display Infectious Disease: No Data to Display Blood Cultures: No Data to Display Toxicology Panel: No Data to Display Anesthesia Assessment and Plan Anesthesia History Personal History: No History of Anesthesia Complications Family History: No Family History of Anesthesia Complications Exercise Tolerance Exercise Tolerance: Metabolic Equivalents>4 Pertinent Negatives Pertinent Negatives: No Symptoms of GERD, No Major Cardiovascular Symptoms or Complaints and No Major Pulmonary Symptoms or Complaints Cardiac & Pulmonary Exam Cardiac Exam: Normal S1/S2 Heart Sounds Pulmonary Exam: Clear Bilateral Breath Sounds Implantable Cardiac Device Does patient have a Pacemaker or an ICD?: No Airway Exam Known Difficult Airway: No Mallampati Class: 3 Mouth Opening: Normal (> 3cm) Thyromental Distance: Greater than 3 cm Neck Range of Motion: Full ROM Neck Circumference: Normal Teeth Condition: Normal Dentition ASA Classification ASA Score: ASA 2 Emergency Case?: No NPO Status NPO Status: NPO Clears >2 hours, Solids >8 hours Anesthesia Plan Resuscitation Status: Full Code Anesthesia Technique: Spinal Anesthesia Airway Planned: Natural Airway Monitors Used: Standard Monitors Preoperative Comments:: No chewing tobacco since yesterday. Sleep apnea, no CPAP use. No seizure since 2021.
--- NOTE | 2023-11-08 07:12 | PDOC.DSDIS_ITS ---
Date of service: 11/08/23 Time of Service: 07:12 Discharge Plan Disposition Patient Disposition: Home Condition: Good Discharge Details Reason For Visit: R THR Attending Provider: José Miguel Nelson Primary Care Provider: Michelle Lozada Home Meds and New Rx's Prescriptions: New celecoxib 200 mg capsule 200 mg PO BID Qty: 60 0RF aspirin 81 mg tablet,delayed release (DR/EC) 81 mg PO BID Qty: 60 0RF acetaminophen 500 mg tablet 1,000 mg PO TID Qty: 90 3RF pantoprazole 40 mg tablet,delayed release (DR/EC) 40 mg PO DAILY Qty: 30 0RF dexamethasone 4 mg tablet 4 mg PO DAILY Qty: 2 0RF oxycodone 5 mg tablet 5 mg PO Q4H MDD 6 tabs PRN (Reason: pain) Qty: 20 0RF Continued lisinopril 30 mg tablet 30 mg PO DAILY hydrochlorothiazide 25 mg tablet 12.5 mg PO DAILY Patient Comments: TAKE ONE TABLET BY MOUTH EVERY DAY DOSE INCREASE divalproex 250 mg tablet,delayed release (DR/EC) 250 mg PO DAILY AM Qty: 30 1RF Patient Comments: TAKE ONE TABLET BY MOUTH EVERY NIGHT IN ADDITION TO THE 500MG FOR A TOTAL OF 750MG Rx Instructions: take one 250 mg tablet once a day along w/ one 500 mg tablet divalproex 500 mg tablet,delayed release (DR/EC) See Rx Instructions .ROUTE .COMPLEX Qty: 90 1RF Patient Comments: TAKE ONE TABLET BY MOUTH TWICE A DAY Rx Instructions: 500 mg take one tablet by mouth daily along w/ one 250 mg tablet daily; take two tablets by mouth nightly Discharge Instructions Additional Instructions: Total Hip Discharge Instructions Activity: The most important activity is to walk. You should try to take short walks a few times a day. You have no restrictions on movement or positioning, but do not try to force what you do. You will find some stiffness and weakness with hip flexion (lifting your knee). Do not try to strengthen this too early, continue to practice walking and stairs and this will come. - Outpatient physical therapy can be helpful to help return you to a normal gait and improve your flexibility and strength. This can start around 2 weeks. For some patients, it?s not necessary. Usually this is determined at the time of discharge or at the first post-operative visit. - You should wear the MEHDI hose on both legs for 2 weeks. Dressing: Keep the surgical dressing in place for at least one week. After the first week it may be removed and replace with light gauze and tape or nothing. It may get wet after 3 days but avoid soaking the dressing. If it gets wet, just lightly pat dry. It is important to always keep some gauze between skin folds, especially when you are sitting. Spend some time with the wound exposed when you are lying flat as the incision does wrinkle onto itself. Medications: - You should take Tylenol and an anti-inflammatory Celebrex as your primary pain control medications. If the Celebrex is too expensive or not covered, please call the office for another alternative (Advil/Ibuprofen or Naproxen/Aleve). - You have been prescribed a stronger pain medication Oxycodone for breakthrough pain, take as needed as prescribed. - You have also been prescribed a stomach acid reduction agent Pantoprozole to help reduce stomach acid and reflux. - You have also been prescribed Decadron to help with post-operative nausea and pain. You will take this for two days starting tomorrow. - You will be taking Aspirin 81mg twice a day for DVT prevention unless instructed otherwise. - If you have constipation you should take Colace or Miralax (both [id number]). It takes most people 3-4 days to have a bowel movement. Follow-up: 2 weeks If you have any acute concerns or questions, please do not hesitate to contact the office at [phone]. You may contact Dr. Nelson with any questions after hours through the hospital at [phone] or on his cell phone at [phone]. Referrals: José Miguel Nelson MD [ [facility] STAFF PHYSICIAN] - Equipment/Supplies: Walker Activity:: Activity as Tolerated Shower/Bathe:: 72 hours Diet:: As Tolerated Discharge Orders Discharge Orders: Discharge Order (Routine); Ordered 11/08/23 Ordered By: José Miguel Nelson DS: Diagnosis Discharge Diagnosis (1) Osteoarthritis of right hip: Status: Acute
[2023-11-08] MEDS: ceFAZolin 3,000 MG in Normal Saline 100 ML 200 MG IVPB (07:29)
--- NOTE | 2023-11-08 09:13 | W.PM.OP ---
Date of service: 11/08/23 Time of Service: 07:40 Operative Note Operative Note DATE OF PROCEDURE: 11/08/23 PRE-OP DIAGNOSIS: Right Hip Osteoarthritis POST-OP DIAGNOSIS: same PROCEDURE: Right Anterior Total Hip Arthroplasty with Intraoperative Navigation SURGEON: José Miguel Nelson COUNTER INTELLIGENCE: Gregory Cespedes ANESTHESIA TYPE: Spinal Refer to Anesthesia Record ESTIMATED BLOOD LOSS: 100 PATHOLOGY: none sent TOURNIQUET TIME: 0 COMPLICATIONS: None Patient was transported to: PACU Patient's condition: stable Implants: 1. Depuy [place] Acetabular Component, 56mm 2. Depuy Acetabular Liner, [id number] 3. Depuy Actis High Offset Collared Femoral Stem, Size 5 4. Depuy Altrx Ceramic Femoral Head, Size 36+8.5mm Indications: I have seen Mateusz in clinic for symptoms of hip arthritis, confirmed with radiographic findings. Mateusz has exhausted nonoperative methods and was having significant limitations in daily function and desired better function and less pain. I discussed the technical details of a hip replacement. I explained the risks of the procedure to include, but not limited to, bleeding, infection, pain, stiffness, fracture, damage to nerves and vessels, damage to muscles and tendons, loosening, instability, leg length inequality, need for repeat procedure, blood clot and cardiopulmonary demise. Despite these risks, Mateusz elected to proceed. Findings: There was significant signs of arthritis throughout the hip involving the femoral head and the acetabulum. Procedure Description: Mateusz was greeted in the preoperative holding area where the correct side was identified and marked. The consent was reviewed with the patient and signed. The history and physical was updated. All questions were answered. Mateusz was taken back to the operating room. A spinal anesthestic was then administered. The feet were wrapped with cast padding and Coban and then placed into the boot liners and then into the boots. Care was taken to protect the skin and make sure the heels were fully down and the boots were stable. The patient was then positioned onto the HANA table. Both legs were held in a neutral position. SCDs were applied. The patient was then slid down onto a peroneal post. Prophylactic antibiotics in the form of Cefazolin were administered. 1g of Tranxemic Acid was given intravenously within 30 minutes of incision. The right leg was then prepped with Chloraprep and draped in a standard fashion. A second prep with Chloraprep was performed prior to placement of a shower-curtain type drape with Iodine impregnated skin protection. A timeout to confirm correct identity, side and site, procedure, allergies, anesthesia, and medical concerns was performed. An obliquely oriented incision was made starting lateral to the ASIS and running distal over the Tensor Fascia Annika (TFL) muscle belly toward the fibular head, approximately 10cm. The skin and soft tissue was dissected sharply, through Marcos?s fascia, and to the fascia of the TFL. With the fascia and superior border of the IT band identified, the fascia was incised with a new knife just above any perforators from the IT band. The TFL muscle belly was bluntly dissected away from the fascia and moved laterally. The fat between TFL and rectus was identified to ensure the dissection was not within the TFL. Blunt dissection created space between abductors and the capsule and retractor was placed over the lateral femoral neck. The fibers of the rectus femoris tendon were identified and these were freed from the anterior capsule. A second cobra retractor was placed around the medial femoral neck. The TFL was further retracted laterally to show the deep fascia. Careful dissection through this layer identified three main crossing vessels of the lateral femoral circumflex. These were cauterized in multiple locations and then cut without any noticeable bleeding. The TFL was further released bluntly from the deep fascia to expose anterior hip capsule and fat The Kyle orthopaedic retractor was then placed beneath the TFL and against sartorius and medial soft tissues to protect and retract the soft tissues. A T-capsulotomy was then performed starting at the superior lateral acetabulum and moving distally to the intertrochanteric ridge. These capsular flaps were tagged with a No. 1 Ethibond and elevated from within. The capsular flaps were released to the shoulder of the lateral neck and to the lesser trochanter to give excellent visualization of the proximal femur. A neck osteotomy was performed using an oscillating saw based on preoperative templates. This cut started in the shoulder and of the lateral neck and exited medially. The saw was at all times directed medially to avoid injury to the greater trochanter. Gross traction was applied to the leg and the osteotomy opened. The femoral head was removed with a corkscrew, making sure to protect the TFL on its exit. Traction was released after head removal. This was measured on the back table to determine the starting reamer size. Portions of the rectus obscuring visualization were minimally elevated off the superior acetabulum. An anterior retractor was placed over the anterior wall between capsule and labrum and attached to the Gripper retraction system. The femur was rotated to 90 degrees and medial capsule was fully released until the lesser trochanter was palpable and visible; the femur was returned to 30 degrees. A posterior retractor was placed similarly between capsule and labrum. This provided excellent visualization. The contents of the cotyloid fossa were removed with electrocautery and the labrum was removed with a knife. There was a notable floor osteophyte. There was significant chondromalacia of the superior acetabulum. Acetabular reaming began with a 50mm reamer. This first reaming was directed anterior to posterior and medial to get down to the true floor. This was inspected and reamed until the true floor was reached. The anterior retractor was then released and entry and exit was provided by traction on the capsular flaps. I then reamed sequentially up to a 56mm reamer where good fit was obtained. The larger reamers were oriented based on anatomical reference of the anterior and lateral eduardo to ensure proper abduction and anteversion. Positioning and size was confirmed with the fluoroscopy. A 56mm Depuy [place] acetabular component was selected. The acetabulum was reamed around the periphery with the selected acetabular size to prevent a rim fit. The deep tissues were irrigated. The acetabular component was then impacted in a position of about 40-45 degrees of abduction and 15-20 degrees of anteversion, using the patient?s anatomy as the ultimate landmark. Fluoroscopy was used to confirm this. There was excellent wheelchair van driver of the acetabular component and the inserting handle was removed. The acetabular liner, Depuy [id number] polyethylene liner, was inserted and lined up with the tines of the acetabular component. There was no soft tissue interposition. The liner was then impacted into position and confirmed to be well-seated. A portion of the archana-articular cocktail was then injected around the acetabulum into the capsule and periosteum. This cocktail consisted of 123mg of Ropivacaine, 0.25mg of Epinephrine, 0.04mg of Clonidine, and 15mg of Ketorolac, diluted to 50cc. The leg was rotated to 120 degrees. Any remaining medial capsule was released until the lesser trochanter was easily palpable. A retractor was placed medially. The lateral capsule was further released into the shoulder to allow access to the greater trochanter. A Calderon retractor was placed over the greater trochanter which allowed the trochanter to flip in front of the capsule for excellent exposure. The leg was brought down into maximal extension and 20 degrees of adduction while ensuring there was no impingement on the acetabulum. Any remnant capsule within the trochanter was released. Piriformis and obturator externis were identified and protected. There was excellent access to the proximal femur. The lateral neck remnant was removed with a rongeur. A blunt canal probe was used to identify the canal and trajectory for later broaching. A box osteotome initiated the broach course. A small curved rasp and a curved curette were used to work laterally. Broaching then began with a starter Actis broach. This was inserted manually around the trochanter and into the canal before mallet blows. The broach was seated to a few millimeters below the cut level based on the neck cut and the preoperative template. Sequential broaching was continued with the [email or web address] pneumatic broaching device until a tight fit was obtained with good rotational control of the femur. A trial high offset neck was inserted along with a +5 trial head. The leg was brought out of extension and adduction and then reduced with traction and internal rotation. The leg was stable anteriorly in a position of 30 degrees of extension and 90 degrees of external rotation. Fluoroscopy was used to ensure there was no fracture and the stem was seated well. Leg lengths were checked with an AP pelvis and pelvic reference points. [employer] navigation system was used to confirm appropriate positioning and leg length and offset. Once content with the desired offset and leg lengths, the leg was brought back into extension, external rotation and adduction. The periosteum and surrounding tissue was injected with remaining portion of the archana-articular cocktail. The proximal femur was irrigated as well as the deep tissues. The [employer] Actis high offset collared stem, size 5, was then manually inserted into the proximal femur making sure to control rotation. It was then malleted into position with light blows, giving breaks to allow bone expansion and decrease risk of fracture. The selected Depuy Altrx Ceramic Head, size 36+8.5mm, was then placed onto the clean and dry trunnion and secured with impaction onto the tapered fit. The leg was brought back out of extension and adduction and reduced with traction and internal rotation. Stability was confirmed with no shuck at 90 degrees of external rotation and 30 degrees of extension. No impingement through range of motion arc. Final x-ray images were obtained with fluoroscopy to confirm adequate positioning and no intraoperative fracture. The deep tissues were thoroughly irrigated with Surgiphor, betadine solution. This was allowed to sit in the wound for 3 minutes before being thoroughly irrigated out with normal saline. The capsule was then reapproximated with the previously placed Ethibond sutures. The TFL fascia was finally closed with a No. 2 Stratafix, barbed suture. Deep tissues were then reapproximated with 0 Vicryl and a running 2-0 Vicryl. The skin was closed with a running 4-0 Monocryl in a subcuticular fashion. This was reinforced with skin glue. A Mepilex silver dressing was applied. At the end of the case, all counts were correct. Mateusz was transferred to the hospital bed without difficulty and suffering no apparent complication. Mateusz has a good prognosis. Physical therapy will start today and without restrictions, weight-bearing as tolerated. Aspirin 81mg BID will be used for DVT prophylaxis.
[2023-11-08] MEDS: fentaNYL 100 MCG/2 ML VIAL IVP ×2 (09:34→09:48)
[2023-11-08] MEDS: oxyCODONE 5 MG TAB PO (10:18)
--- NOTE | 2023-11-08 11:23 | PT.INIE ---
PT Notes Visit Reasons: R THR Physical Therapy Day Surgery Initial Evaluation Date: 11/08/2023 Referring Doctor: CLARITZA Simon PT Orders: PT CONSULT: S/P Ortho Surgery Precautions: WBAT on right LE with AD. Patient Profile/Admitting Diagnosis: Mateusz is a 53-year-old male with degenerative joint disease of the right hip and status post right anterior total hip arthroplasty on postoperative day 0. PMHX: Medical History (Updated 09/15/23 @ 00:02 by CHYNA ARTHUR) Prediabetes Tobacco abuse Hypertension Hemorrhagic stroke Surgical History (Updated 08/31/23 @ 14:35 by CLARITZA Simon) S/P ACL reconstruction LEFT Social History/Home Situation: Lives with in a private home with 3-4 steps to enter with a rail on one side. Independent with all aspects of ADLs prior to surgery although has had increasing difficulty with mobility performance due to worsening arthritis. Equipment Owned/DME: None Subjective: Reported 1?2/10 pain on the right hip at rest and with movement. Denied headache, chest pain, and lightheadedness throughout session. Objective: General Observation: Resting in bed. present in room throughout session. Mepilex Ag over surgical incision. TDS to be legs. Mental Status: ANO x 4 Pain: As above ROM: Right Lower Extremity: Hip flexion WFL. Hip abduction WFL. Knee flexion WFL. Ankle dorsiflexion WFL. Ankle plantarflexion WFL. Left Lower Extremity: Hip flexion WFL. Hip abduction WFL. Knee flexion WFL. Ankle dorsiflexion WFL. Ankle plantarflexion WFL. Strength: Right Lower Extremity: Hip flexors 4/5. Hip abductors 4/5. Knee flexors 5/5. Knee extensors 4/5. Ankle dorsiflexors 5/5. Ankle plantarflexors 5/5. Left Lower Extremity:Hip flexors 5/5. Hip abductors 5/5. Knee flexors 5/5. Knee extensors 5/5. Ankle dorsiflexors 5/5. Ankle plantarflexors 5/5. Sensation: Intact as to pain and light pressure in BLE Bed Mobility/Transfers: Minimal cueing provided for use of B hands as needed for support, movement sequence, AD management, and posture to reduce fall risk and minimize pain report Supine to sit stand by assist Sit to stand standby assist with FWW Stand to sit standby assist with FWW Bed to chair standby assist with FWW Gait: Facilitated safe and correct performance of level surface ambulation covering a distance of 150 feet using front wheeled walker with reciprocal swing through heel-toe gait pattern requiring only standby assist and minimal verbal cueing for AD management, correct gait pattern, and posture to reduce fall risk and minimize pain report. Stairs: Guided patient with safe and correct negotiation of 3 x 4 inch steps and 2 x 6 inch steps holding onto bilateral rails with step to gait pattern requiring only standby assist and minimal verbal cueing for limb and advancement, hand placement, and posture to reduce fall risk and minimize pain report. Balance: Static Sitting: Normal Dynamic Sitting: Normal Static Standing: Fair Dynamic Standing: Fair Special Tests: Mobility Limitations Standardized Measure [facility]-P[facility] 6 clicks Basic Mobility Inpatient Short Form: Raw Score: 24 CMS Score: 0% deficit Informed Consent/Education: Patient instructed in purpose of PT consult. Packet containing ANN-MARIE exercise protocol has been given to patient. Education and training on initial set of exercises that can be done at home have been completed with patient. Trained patient with correct performance of exercises below to maximize motor control, joint flexibility, soft tissue extensibility of the R hip musculature to facilitate return to independent functional mobility performance. Access Code: [email or web address] URL: [email or web address] Date: 11/08/2023 Prepared by: Olivia Bhandari Exercises - Gluteal Sets - 1 x daily - 7 x weekly - 1 sets - 10 reps - 5 hold - Supine Heel Slide - 1 x daily - 7 x weekly - 1 sets - 10 reps - 5 hold - Supine Ankle Pumps - 1 x daily - 7 x weekly - 1 sets - 10 reps - 5 hold - Seated March - 1 x daily - 7 x weekly - 1 sets - 10 reps - 5 hold - Seated Long Arc Quad - 1 x daily - 7 x weekly - 1 sets - 10 reps - 5 hold Assessment: Patient requires the use of a front wheeled walker for mobility ADL performance to maximize independence and reduce fall risk. Patient presents with clinical signs and symptoms consistent with current/admitting diagnoses that have resulted to mobility limitations, gait instability, generalized weakness, and impairment of motor control as demonstrated by the following impairment level findings: 1. Decreased strength to R hip major muscle groups 2. Impaired standing balance Impairments are contributing to the following functional limitations: 1. Inability to safely ambulate without assistive device 2. Increase completion time for mobility ADL performance 3. Increased fall risk Patient is assessed as a 43477 moderate complexity based on the following: History: 53-year-old maleE with impairment level findings, functional limitations, and past medical history as indicated above Examination: Demonstrable impairment in strength, balance, and mobility level with underlying impairments and functional limitations as documented above Presentation: Evolving Decision Makin moderate complexity Goals: N/A. PT evaluation and 1-2 treatment sessions only for functional mobility training using recommended AD and for HEP instruction. Plan of Care/Treatment Plan: N/A. PT evaluation and 1-2 treatment session only for functional mobility training using recommended AD and for HEP instruction. DISCHARGE RECOMMENDATIONS: Home when medically cleared by orthopedic surgeon. Recommend outpatient PT services in order to optimize functional mobility outcomes and facilitate return to independent community ambulation without an assistive device. TREATMENT CODE/TIME: 9716 2 x 22 minutes for 1 unit (11:23-11:45). Thank you for the opportunity to participate in the care of this patient. Please sign an return this page within 30 days if you agree with the above POC. Thank you! Physician Signature Date [facility] Thank you for the opportunity to participate in the care of this patient. Olivia Bhandari PT, DPT, CLT [facility] [place], [place]
--- NOTE | 2023-11-08 12:40 | W.ANESPOSTOP ---
Postoperative Evaluation Date, Time and Location Date Performed: 11/08/23 Time Performed: 12:35 Patient Location: Day Surgery Unit Vital Signs Most Recent Imported Vital Signs: Most Recent Vital Signs Temp Pulse Resp BP Pulse Ox 36.4 C L 87 16 116/71 95 11/08/23 11:53 11/08/23 11:53 11/08/23 11:53 11/08/23 11:53 11/08/23 11:53 Pain Score Most Recent Pain Score: Most Recent Pain Score Pain Level 0 11/08/23 11:53 Assessment Mental Status: Awake (Alert & Oriented to Patient Baseline) Airway and Respiratory Function: Patent airway with normal (patient baseline) respiratory exam Cardiovascular Function: Hemodynamically Stable Hydration Status: Adequately Hydrated Nausea & Vomiting: No Nausea or Vomiting Pain: Pt. Denies Any Pain Peripheral Nerve Block: Patient did not receive a nerve block
== END 2023-11-08 12:36 | disposition home or self-care (01) ==
PROVIDERS: PCP Nurse Practitioner Family; Visit Provider Student in an Organized Health Care Education/Training Program
PROC: (CPT 27130; principal; 2023-11-08 07:30)
DX: M16.11 Unilateral primary osteoarthritis, right hip (principal); R73.03 Prediabetes; I10 Essential (primary) hypertension; Z86.73 Personal history of transient ischemic attack (TIA), and cerebral infarction without residual deficits
CPT/HCPCS: 27130; 20985; 97162; 73501; C1776; J0690; J1100; J2001; J2250; J2371; J2401; J2405; J2704; J3010

== ENCOUNTER 2023-11-23 14:47 | Outpatient (CLI) | payer BC, SELFPAY ==
--- NOTE | 2023-11-23 10:15 | DI.RAD_ITS ---
Exam(s) XR HIP RT COMPLETE AP PELVIS EXAM: XR HIP RT COMPLETE AP PELVIS CLINICAL HISTORY: 1ST POST OP S/P R ANN-MARIE. TECHNIQUE: 2D digital imaging was performed. Two images were obtained. AP pelvis and lateral hip vi ews were obtained. COMPARISON: CR XR HIP RT COMPLETE AP PELVIS from 08/31/2023 XA XR HIP RT IN OR from 11/08/2023 FINDINGS: BONES: There are stable post operative changes of a right total hip replacement present. No fracture or dislocation. JOINTS: The orthopedic hardware is in good position. No evidence of hardware loosening. Moderate de generative changes are seen in the left hip with joint space narrowing and osteophytes present. SOFT TISSUE: Normal. IMPRESSION: Stable right total hip replacement. DATA REPOSITORY: RADIATION DOSE DELIVERED:
== END 2023-11-23 14:48 | disposition home or self-care (01) ==
LOC: DIORS 14:47
PROVIDERS: PCP Nurse Practitioner Family; Visit Provider Student in an Organized Health Care Education/Training Program
DX: Z96.641 Presence of right artificial hip joint (principal); Z47.1 Aftercare following joint replacement surgery
CPT/HCPCS: 73502

== ENCOUNTER 2024-02-16 16:22 | Outpatient (REF) | payer BC, SELFPAY ==
[2024-02-16 18:58] LABS: Abs Immature Grans 0.02 10^3/uL (0.0-0.06); Absolute Basophil Count 0.04 10^3/uL (0.0-0.2); Absolute Eosinophil Count 0.18 10^3/uL (0.0-0.7); Absolute Lymphocyte Count 3.15 10^3/uL (1.2-3.4); Absolute Neutrophil Count 3.54 10^3/uL (1.2-6.7); Basophils % 0.5 %; Eosinophils % 2.3 %; HCT 46.1 % (40.0-50.0); HGB 16.1 g/dL (13.5-17.5); Immature Grans % 0.3 %; Lymphocytes % 40.2 %; MCH 33.3 pg (27.0-33.0); MCHC 34.9 % (32.0-36.0); MCV 95 fL (80-95); MPV 11.6 fL (8.0-11.0); Monocytes % 11.5 %; Neutrophils % 45.2 %; Platelet Count 193 10^3/uL (130-400); RBC 4.84 10^6/uL (4.36-5.78); RDW 11.9 % (11.8-14.1); RDW-SD 41.3 fL; WBC 7.83 10^3/uL (4.4-10.8)
[2024-02-16 19:09] LABS: VALPROIC ACID 94.9 ug/mL
[2024-02-16 19:10] LABS: ALT 18 U/L (16-63); AST 29 U/L (15-37); Albumin 3.6 g/dL (3.4-5.0); Alkaline Phosphatase 63 U/L (46-116); Anion Gap 11.8 mmol/L (3-11); BUN 12 mg/dL (7-18); Bilirubin, Total 0.65 mg/dL (0.2-1.0); CO2 27.2 mmol/L (21.0-32.0); Calcium 9.1 mg/dL (8.5-10.1); Calculated LDL 113 mg/dL (<100); Chloride 103 mmol/L (98-107); Cholesterol 190 mg/dL (<200); Estimated GFR 91.12 (mL/min/1.73m2); Glucose 82 mg/dL (74-106); HDL Cholesterol 41 mg/dL (40-60); Potassium 3.9 mmol/L (3.5-5.1); Sodium 142 mmol/L (136-145); Total Protein 7.2 g/dL (6.4-8.2); Triglyceride 183 mg/dL (<150)
[2024-02-16 19:24] LABS: Hemoglobin A1C 5.4 % (<5.7)
== END 2024-02-16 16:23 | disposition home or self-care (01) ==
LOC: NCHCN 16:22
PROVIDERS: PCP Nurse Practitioner Family; Visit Provider Nurse Practitioner Family
DX: Z00.00 Encounter for general adult medical examination without abnormal findings (principal); R73.03 Prediabetes; G40.909 Epilepsy, unspecified, not intractable, without status epilepticus; Z51.81 Encounter for therapeutic drug level monitoring; Z79.899 Other long term (current) drug therapy; R79.89 Other specified abnormal findings of blood chemistry
CPT/HCPCS: 80053; 80061; 80164; 83036; 85025

== ENCOUNTER 2024-11-14 15:31 | Outpatient (CLI) | payer BC, SELFPAY ==
--- NOTE | 2024-11-14 09:15 | DI.RAD_ITS ---
Exam(s) XR HIP RT AP LAT ONLY EXAM: XR HIP RT AP LAT ONLY INDICATION: ANNUAL F/U R ANN-MARIE. COMPARISON: CR XR HIP RT COMPLETE AP PELVIS from 11/23/2023 TECHNIQUE: 2D digital imaging was performed. Two views. FINDINGS: Stable alignment of right hip prosthesis. No abnormal surrounding bony lucencies. Stable excrescenc e from the superior acetabulum. DATA REPOSITORY: RADIATION DOSE DELIVERED:
--- NOTE | 2024-11-14 09:30 | DI.RAD_ITS ---
Exam(s) XR KNEE RT 4V AP,LAT,EARL,PAT EXAM: XR KNEE RT 4V AP,LAT,EARL,PAT CLINICAL HISTORY: RIGHT KNEE PAIN. TECHNIQUE: 2D digital imaging was performed. Three views. COMPARISON: CR XR KNEE LT 4V AP,LAT,EARL,PAT from 08/15/2023 FINDINGS: BONES: No acute fracture is present. No bony destructive lesion is seen. JOINTS: Severe narrowing of the lateral patellofemoral joint space and periarticular spurring. Femor al tibial joint spaces are maintained. A small joint effusion is seen. SOFT TISSUE: Normal. IMPRESSION: Severe degenerative change patellofemoral joint. DATA REPOSITORY: RADIATION DOSE DELIVERED:
== END 2024-11-14 15:32 | disposition home or self-care (01) ==
LOC: DIORS 15:31
PROVIDERS: PCP Nurse Practitioner Family; Visit Provider Student in an Organized Health Care Education/Training Program
DX: Z96.641 Presence of right artificial hip joint (principal); M25.561 Pain in right knee; Z47.1 Aftercare following joint replacement surgery
CPT/HCPCS: 73502; 73564

== ENCOUNTER 2025-01-09 15:05 | Outpatient (REF) | payer BC, SELFPAY ==
[2025-01-09 16:40] LABS: HCT 45.7 % (40.0-50.0); MCH 33.3 pg (27.0-33.0); MCV 95 fL (80-95); MPV 11.4 fL (8.0-11.0); Platelet Count 192 10^3/uL (130-400); RDW 11.7 % (11.8-14.1); RDW-SD 40.3 fL; WBC 6.27 10^3/uL (4.4-10.8)
[2025-01-09 17:18] LABS: VALPROIC ACID 106.8 ug/mL
[2025-01-09 17:45] LABS: ALT 22 U/L (16-63); AST 20 U/L (15-37); Albumin 3.8 g/dL (3.4-5.0); Alkaline Phosphatase 66 U/L (46-116); Anion Gap 8.7 mmol/L (3-11); BUN 20 mg/dL (7-18); Bilirubin, Total 0.9 mg/dL (0.2-1.0); CO2 29.3 mmol/L (21.0-32.0); Calcium 9.7 mg/dL (8.5-10.1); Chloride 102 mmol/L (98-107); Estimated GFR 90.56 (mL/min/1.73m2); Glucose 162 mg/dL (74-106); Potassium 3.9 mmol/L (3.5-5.1); Sodium 140 mmol/L (136-145); Total Protein 7.3 g/dL (6.4-8.2)
== END 2025-01-09 15:06 | disposition home or self-care (01) ==
LOC: NCHCN 15:05
PROVIDERS: PCP Nurse Practitioner Family; Visit Provider Nurse Practitioner Family
DX: I10 Essential (primary) hypertension (principal); R56.9 Unspecified convulsions
CPT/HCPCS: 80053; 85027; 80164